=== PATIENT | male | born 1980 | race Caucasian/White ===

== ENCOUNTER 2016-09-23 02:43 | Emergency (ER) | payer OTHER ==
[~2016-09-23] VITALS: Ht 182.9 cm; Wt 72.0 kg
[2016-09-23 02:45] VITALS: BP 143/90; PULSE 117; RESP 16; TEMP 98.9; O2SAT 98
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
== END 2016-09-23 03:23 | disposition home or self-care (01) ==
LOC: NEPB 02:43
DX: S31.119A Laceration without foreign body of abdominal wall, unspecified quadrant without penetration into peritoneal cavity, initial encounter (principal); S00.81XA Abrasion of other part of head, initial encounter; S50.812A Abrasion of left forearm, initial encounter; S50.811A Abrasion of right forearm, initial encounter; F17.200 Nicotine dependence, unspecified, uncomplicated; Z86.19 Personal history of other infectious and parasitic diseases; Z86.79 Personal history of other diseases of the circulatory system; W17.89XA Other fall from one level to another, initial encounter; Y93.89 Activity, other specified
CPT/HCPCS: 12004

== ENCOUNTER 2016-10-16 16:55 | Emergency (ER) | payer SELFPAY ==
[2016-10-16 16:57] VITALS: BP 128/88; PULSE 105; RESP 17; TEMP 97.8; O2SAT 95
== END 2016-10-16 17:35 | disposition left against medical advice (07) ==
LOC: NED 16:55
DX: Z53.21 Procedure and treatment not carried out due to patient leaving prior to being seen by health care provider (principal)
CPT/HCPCS: 99281

== ENCOUNTER 2016-10-26 14:43 | Emergency (ER) | payer OTHER ==
[~2016-10-26] VITALS: Ht 182.9 cm; Wt 75.0 kg
[2016-10-26 14:45] VITALS: BP 133/79; PULSE 97; RESP 18; TEMP 98.2; O2SAT 97
[2016-10-26] MEDS ORDERED: BACT800T5 PO (16:24)
[2016-10-26] MEDS ORDERED: CEPH-460 PO (16:24)
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
[2016-10-26] MEDS ORDERED: LIDOCAINE 1%/EPINEPHrine 1:100,000 SOLN 20 ML VIAL INFIL ONE (16:30)
== END 2016-10-26 16:51 | disposition home or self-care (01) ==
LOC: NEPB 14:43
DX: L02.413 Cutaneous abscess of right upper limb (principal); B19.20 Unspecified viral hepatitis C without hepatic coma; F17.210 Nicotine dependence, cigarettes, uncomplicated; B96.1 Klebsiella pneumoniae [K. pneumoniae] as the cause of diseases classified elsewhere
CPT/HCPCS: 10060; 87070; 87077; 87186

== ENCOUNTER 2017-09-01 17:08 | Emergency (ER) | payer SELFPAY ==
[~2017-09-01 17:08] MED LIST: BACT800T5 PO; CEPH-460 PO
[2017-09-01 17:10] VITALS: BP 133/81; PULSE 100; RESP 20; TEMP 98.1; O2SAT 98
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
== END 2017-09-01 18:00 | disposition left against medical advice (07) ==
LOC: NETRI 17:08
DX: H92.01 Otalgia, right ear (principal); F17.200 Nicotine dependence, unspecified, uncomplicated
CPT/HCPCS: 99281

== ENCOUNTER 2017-09-23 02:49 | Inpatient (IN) | payer SELFPAY ==
[~2017-09-23] VITALS: Ht 182.9 cm; Wt 73.6 kg
[2017-09-23 02:51] VITALS: BP 134/86; PULSE 90; RESP 18; TEMP 98.4; O2SAT 100
[2017-09-23] MEDS ORDERED: VANCOMYCIN INJ 1,150 MG in SODIUM CHLOR 0.9% 250 ML INJ 250 ML IV ONE (03:45)
[2017-09-23] MEDS ORDERED: KETOROLAC TROMETHAMINE 30 MG/ML (IVP) VIAL IV PUSH ONE (03:45)
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
[2017-09-23 04:26] LABS: AUTOMATED NEUTROPHIL # 8.8 TH/MM3 (1.8-7.7); BASOPHIL # 0.1 TH/MM3 (0-0.2); BASOPHIL % 0.5 % (0.0-2.0); EOSINOPHIL # 0.2 TH/MM3 (0-0.4); EOSINOPHIL % 1.3 % (0.0-4.0); HEMATOCRIT 40.8 % (39.0-51.0); HEMOGLOBIN 13.2 GM/DL (13.0-17.0); LYMPH % 16.6 % (9.0-44.0); MEAN CELL VOLUME 86.7 FL (80.0-100.0); MEAN CORPUSCULAR HEMOGLOBIN 27.9 PG (27.0-34.0); MEAN CORPUSCULAR HGB CONC 32.2 % (32.0-36.0); MEAN PLATELET VOLUME 8.2 FL (7.0-11.0); MONOCYTE # 0.9 TH/MM3 (0-0.9); NEUT % 73.6 % (16.0-70.0); PLATELET COUNT 354 TH/MM3 (150-450); RED BLOOD COUNT 4.71 MIL/MM3 (4.50-5.90); RED CELL DISTRIBUTION WIDTH 14.1 % (11.6-17.2); WHITE BLOOD COUNT 11.9 TH/MM3 (4.0-11.0)
[2017-09-23 04:52] LABS: BICARBONATE 29.4 MEQ/L (21.0-32.0); CALCIUM 9.2 MG/DL (8.5-10.1); CREATININE 0.81 MG/DL (0.60-1.30)
[2017-09-23 04:56] LABS: PROTHROMBIN TIME - PATIENT 10.6 SEC (9.8-11.6)
--- NOTE | 2017-09-23 04:59 | RADRPT ---
EXAM DATE/TIME: 09/23/2017 04:07 [facility] COMPARISON: No previous studies available for comparison. INDICATIONS : Left hand pain and swelling. MEDICAL HISTORY : History of endocarditis, hepatitis C, septic pulmonary embolism, IV drug use. SURGICAL HISTORY : History of abdominal surgery, orthopedic hand surgery. ENCOUNTER: Initial ACUITY: 3 days PAIN SCORE: 8/10 LOCATION: Left hand. FINDINGS: There is soft tissue swelling of the second digit. There is some soft tissue swelling at the dorsal a spect of the hand and metacarpals. The bony structures appear intact. No fractures or bony destructio n are seen. No foreign body seen. CONCLUSION: Soft tissue swelling. Govind Chaudhry MD on September 23, 2017 at 4:56 Board Certified Radiologist. This report was verified electronically.
[2017-09-23] MEDS ORDERED: LIDOCAINE HCL 1% 50 ML VIAL INFIL ONE (06:00)
[2017-09-23 07:00] VITALS: BP 121/80; PULSE 89; RESP 16; TEMP 98; O2SAT 99
[2017-09-23] MEDS ORDERED: TYLE325T PO (07:00)
[2017-09-23] MEDS ORDERED: BACT800T5 PO (07:00)
[2017-09-23] MEDS ORDERED: SENNOSIDES 8.6 MG TAB PO PRN (08:15)
[2017-09-23] MEDS ORDERED: MAGNESIUM HYDROXIDE SUSP 30 ML CUP PO PRN (08:15)
[2017-09-23] MEDS ORDERED: Vancomycin Consult Pharmacy 1 EA OTHER SCH (08:15)
[2017-09-23] MEDS ORDERED: BISACODYL 10 MG SUPP RECTAL PRN (08:15)
[2017-09-23] MEDS ORDERED: LACTULOSE SYRUP 20 GM/30 ML CUP PO PRN (08:15)
[2017-09-23] MEDS ORDERED: ONDANSETRON HCL 4 MG/2 ML VIAL IVP PRN (08:15)
[2017-09-23] MEDS ORDERED: NALOXONE HCL 0.4 MG/ML AMP IV PUSH PRN (08:15)
[2017-09-23] MEDS: SODIUM CHLORIDE 0.9% FLUSH 10 ML FLUSH IV FLUSH SCH ×2 (08:41→20:37)
[2017-09-23] MEDS: SODIUM CHLOR 0.9% 1000 ML INJ 1,000 ML IV SCH ×2 (08:41→18:11)
[2017-09-23 11:00] VITALS: BP 124/78; PULSE 86; RESP 17; TEMP 97.9; O2SAT 98
[2017-09-23 12:51] VITALS: BP 123/81; PULSE 84; RESP 16; TEMP 98; O2SAT 99
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
[2017-09-23 13:35] VITALS: BP 118/81; TEMP 97.8
[2017-09-23] MEDS ORDERED: POVIDONE IODINE 5% (ANTISEPSIS KIT) 4 APPLICATIONS EACH NARE PRN (14:30)
[2017-09-23] MEDS ORDERED: LACTATED RINGER'S 1000 ML IV PRN (14:30)
[2017-09-23] MEDS ORDERED: SODIUM CHLORID 0.9% 500 ML IV PRN (14:30)
[2017-09-23] MEDS ORDERED: METOPROLOL TARTRATE 25 MG TAB PO PRN (14:30)
[2017-09-23] MEDS ORDERED: CHLORHEXIDINE GLUCONATE 2 % 1 PACK (2 CLOTHS) TOPICAL PRN (14:30)
[2017-09-23] MEDS: VANCOMYCIN INJ 1,500 MG in SODIUM CHLORID 0.9% 500 ML INJ 500 ML IV SCH (14:38)
[2017-09-23] MEDS ORDERED: HYDROmorphone HCL PF 2 MG/ML VIAL ONE (15:55)
[2017-09-23] MEDS ORDERED: LIDOCAINE HCL 2% PF SOLN 10 ML VIAL INFIL ONE (16:59)
[2017-09-23] MEDS ORDERED: BUPIVACAINE HCL PF 0.25% 30 ML VIAL INFIL ONE (17:00)
--- NOTE | 2017-09-23 17:25 | PD.OP ---
Operative Report Preoperative Diagnosis: (1) felon left index finger Postoperative Diagnosis: (1) septic arthritis distal interphalangeal joint left index finger (2) felon left index finger Procedure: incision and drainage pulp arthrotomy distal interphalangeal joint left index finger Anesthesia: general Surgeon: Hernandez Beverly Powder Mixer(s): farzaneh Operation and Findings: necrotic pulp purulence within flexor tendon sheath septic arthritis DIP joint infection of the nail bed left index finger Hernandez Beverly MD Sep 23, 2017 17:25
[2017-09-23] MEDS ORDERED: DO NOT ADM ANY ANTICOAGULANT DRUGS PRN (17:30)
--- NOTE | 2017-09-23 19:09 | MB ---
cc: JHONNY MAHMOOD DATE OF CONSULTATION 09/23/17 REASON FOR CONSULTATION Left index finger infection. HISTORY OF PRESENT ILLNESS The patient is a 37-year-old right-hand dominant male with history of IV drug abuse who was admitted to the hospital with complaints of pain, swelling involving the left index finger of several days duration. The patient gives drainage from the region. Denies any injury. Denies any biting of nail. The patient states he used a needle to try to drain pus a few days ago which made it worse. He denies any fever. Complains of chills. He also complains of surrounding redness and difficulty with range of motion of the finger. Denies any numbness. PAST MEDICAL HISTORY 1. Hepatitis C 2. Mitral valve endocarditis. SOCIAL HISTORY Significant for smoking. PHYSICAL EXAMINATION The patient is sleepy that he does respond to oral commands. Examination of left index finger reveals wound along the radial aspect and dorsal aspect of the finger with exposed necrotic tissue. The nail plate appears to be elevated off the nail bed. There is evidence of surrounding swelling and erythema which extends up to the middle of the mid phalanx. The pulp appears to be dark and the tip of his finger over the hyponychium appears pale with no capillary refill. He has tenderness over the region. No tenderness noted along the flexor tendon sheath over the proximal phalanx region. He does have tenderness along the flexor tendon sheath over the DIP joint region. Range of motion of the DIP joint is limited and painful. PIP joint __ degrees of flexion, extension is painful. He also has drainage from the region. He has an open wound along the radial aspect of the nail bed and extending up to the DIP joint. LABORATORY DATA His lab work was reviewed. He has a white count of 11.7 and shift of 79%. IMAGING STUDIES X-rays of the left index finger shows soft tissue swelling. No evidence of osteomyelitis. ASSESSMENT A 37-year-old male with left index finger pulp infection, possible distal interphalangeal joint infection. PLAN Take the patient emergently for surgery. The various options were discussed with the patient including incision and drainage and amputation. The patient is not willing for amputation. He wants the finger to be saved. We will plan for incision and drainage and possible arthrotomy of the distal interphalangeal joint left index finger. We will admit the patient for IV antibiotics as well. MD KEITH Amanda /5:29 PM /6:51 PM
[2017-09-23 20:42] VITALS: BP 133/86; PULSE 99; RESP 18; TEMP 97.8; O2SAT 96
[2017-09-23] MEDS ORDERED: VANCOMYCIN 1 GM/200 ML INJ 200 ML IV SCH (21:00)
[2017-09-24] MEDS: VANCOMYCIN INJ 1,500 MG in SODIUM CHLORID 0.9% 500 ML INJ 500 ML IV SCH ×2 (02:49→13:50)
[2017-09-24] MEDS: SODIUM CHLOR 0.9% 1000 ML INJ 1,000 ML IV SCH ×3 (04:11→21:30)
[2017-09-24 07:12] VITALS: BP 104/63; PULSE 55; RESP 18; TEMP 97.8; O2SAT 98
--- NOTE | 2017-09-24 09:16 | HHI.PR ---
Subjective Remarks In bed appears in nad. No n/v/d/c. Manuel having pain at this time. Denies fever ro chills. He agrees to treatment. Objective Vitals Vital Signs Date Time Temp Pulse Resp B/P (MAP) Pulse Ox O2 Delivery O2 Flow Rate FiO2 09/24/17 07:12 97.8 55 18 104/63 (77) 98 09/23/17 20:42 97.8 99 18 133/86 (102) 96 09/23/17 18:10 98.4 83 15 107/61 (76) 98 Nasal Cannula 3 09/23/17 18:00 81 15 113/58 (76) 98 Nasal Cannula 3 09/23/17 17:45 86 15 111/59 (76) 97 Nasal Cannula 3 09/23/17 17:29 98.2 95 15 99/55 (70) 95 Nasal Cannula 3 09/23/17 13:35 97.8 80 16 118/81 (93) 99 09/23/17 12:51 98.0 84 16 123/81 (95) 99 Room Air 09/23/17 11:00 97.9 86 17 124/78 (93) 98 Room Air I/O 09/23/17 09/23/17 09/23/17 09/24/17 09/24/17 09/24/17 07:00 15:00 23:00 07:00 15:00 23:00 Intake Total 261.5 ml 575 ml Output Total 10 ml Balance 261.5 ml 565 ml Intake IV Total 261.5 ml 75 ml Other 500 ml Output Urine Total 0 ml Estimated Blood Loss 10 ml # Voids 1 # Bowel Movements 0 Result Diagram: 09/23/17 0409 09/23/17 0409 Imaging Last Impressions Hand X-Ray 09/23/17 0000 Signed Impressions: Service Date/Time: September 04:07 - CONCLUSION: Soft tissue swelling. Govind Chaudhry MD Objective Remarks GENERAL: This is a well-nourished, well-developed patient, in no apparent distress. Appears somnolent, wakes up for exam. Oriented 3. CARDIOVASCULAR: Regular rate and rhythm without murmurs, gallops, or rubs. RESPIRATORY: Clear to auscultation. Breath sounds equal bilaterally. No wheezes , rales, or rhonchi. GASTROINTESTINAL: Abdomen soft, non-tender, nondistended. No hepato-splenomegaly , or palpable masses. No guarding. MUSCULOSKELETAL: Extremities without clubbing, cyanosis, or edema. No joint tenderness, effusion, or edema noted. No calf tenderness. Negative Homans sign bilaterally. Left ue second digit dressed with dressing intact. Peripheral perfusion intact. NEUROLOGICAL: Awake and alert. Cranial nerves II through XII intact. Motor and sensory grossly within normal limits. Five out of 5 muscle strength in all muscle groups. Normal speech. A/P Assessment and Plan Left second digit cellulitis. Necrotic pulp/ Purulence within flexor tendon sheath/ Septic arthritis DIP joint / Infection of the nail bed left index finger Bacteremia with Gram-positive cocci Consult infectious disease SP incision and drainage pulp and arthrotomy distal interphalangeal joint left index finger by Dr Beverly, hand surgeon X-ray hand with soft tissue swelling, no evidence of osteomyelitis. White blood cell count 11.9. Start on vancomycin. Blood cultures ordered by the ER Continue to monitor. Hand surgery consult appreciated On vanco IV continue , ID consulted History of narcotic abuse, IV drug use. Avoid narcotics if possible. Tobaccoism. Cessation counseling provided. Discussed Condition With Patient, nurse Opal Rust MD Sep 24, 2017 09:16
[2017-09-24] MEDS: SODIUM CHLORIDE 0.9% FLUSH 10 ML FLUSH IV FLUSH SCH ×2 (09:21→21:37)
[2017-09-24 11:28] VITALS: BP 91/52; PULSE 75; RESP 18; TEMP 97.6; O2SAT 98
[2017-09-24 15:24] VITALS: BP 116/74; PULSE 88; RESP 18; TEMP 97.9; O2SAT 100
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
[2017-09-24] MEDS ORDERED: DIATRIZOATE MEGLUM/DIATRIZOATE SOD 9 ML CUP PO ONE (16:45)
[2017-09-24] MEDS ORDERED: IOHEXOL 350 MG/ML 10 ML VIAL (for RAD DIAG) IVCONTRAST ONE (20:23)
[2017-09-24 20:50] VITALS: BP 105/57; PULSE 73; RESP 17; TEMP 98; O2SAT 97
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
[2017-09-25 00:39] VITALS: BP 123/78; PULSE 76; RESP 17; TEMP 97.9; O2SAT 97
[2017-09-25] MEDS ORDERED: PHARMACY ORDERED LAB ONE (01:45)
[2017-09-25] MEDS: VANCOMYCIN INJ 1,500 MG in SODIUM CHLORID 0.9% 500 ML INJ 500 ML IV SCH (02:00)
[2017-09-25 02:08] LABS: ALBUMIN 2.9 GM/DL (3.4-5.0); AST (GOT) 9 U/L (15-37); BICARBONATE 27.4 MEQ/L (21.0-32.0); BLOOD UREA NITROGEN 11 MG/DL (7-18); CALCIUM 8.8 MG/DL (8.5-10.1); CHLORIDE 106 MEQ/L (98-107); CREATININE 0.77 MG/DL (0.60-1.30); DIRECT BILIRUBIN ADULT 0.1 MG/DL (0.0-0.2); GLOMERULAR FILTRATION RATE 114 ML/MIN (>89); GLUCOSE,RANDOM 98 MG/DL (74-106); SODIUM (NA) 142 MEQ/L (136-145)
[2017-09-25 02:09] LABS: ALT (GPT) 14 U/L (12-78)
[2017-09-25 02:11] LABS: ALKALINE PHOSPHATASE 68 U/L (45-117); TOTAL BILIRUBIN ADULT 0.2 MG/DL (0.2-1.0); TOTAL PROTEIN 7.1 GM/DL (6.4-8.2); VANCOMYCIN TROUGH 12.9 MCG/ML (5.0-10.0)
[2017-09-25 03:49] VITALS: BP 105/52; PULSE 70; RESP 17; TEMP 98; O2SAT 97
[2017-09-25 07:47] VITALS: BP 98/62; PULSE 54; RESP 18; TEMP 98.4; O2SAT 100
--- NOTE | 2017-09-25 09:37 | HHI.PR ---
Subjective Remarks In bed says pain in his hand is fairly controlled by meds. No fever or chills overnight. No n/v/d/c. Objective Vitals Vital Signs Date Time Temp Pulse Resp B/P (MAP) Pulse Ox O2 Delivery O2 Flow Rate FiO2 09/25/17 07:47 98.4 54 18 98/62 (74) 100 09/25/17 03:49 98.0 70 17 105/52 (69) 97 09/25/17 00:39 97.9 76 17 123/78 (93) 97 09/24/17 20:50 98.0 73 17 105/57 (73) 97 09/24/17 15:24 97.9 88 18 116/74 (88) 100 09/24/17 11:28 97.6 75 18 91/52 (65) 98 Result Diagram: 09/23/17 0409 09/25/17 0140 Objective Remarks GENERAL: This is a well-nourished, well-developed patient, in no apparent distress. Appears somnolent, wakes up for exam. Oriented 3. CARDIOVASCULAR: Regular rate and rhythm without murmurs, gallops, or rubs. RESPIRATORY: Clear to auscultation. Breath sounds equal bilaterally. No wheezes , rales, or rhonchi. GASTROINTESTINAL: Abdomen soft, non-tender, nondistended. No hepato-splenomegaly , or palpable masses. No guarding. MUSCULOSKELETAL: Extremities without clubbing, cyanosis, or edema. No joint tenderness, effusion, or edema noted. No calf tenderness. Negative Homans sign bilaterally. Left ue second digit dressed with dressing intact. Peripheral perfusion intact. NEUROLOGICAL: Awake and alert. Cranial nerves II through XII intact. Motor and sensory grossly within normal limits. Five out of 5 muscle strength in all muscle groups. Normal speech. A/P Assessment and Plan Left second digit cellulitis. Necrotic pulp/ Purulence within flexor tendon sheath/ Septic arthritis DIP joint / Infection of the nail bed left index finger Bacteremia with Gram-positive cocci Consult infectious disease SP incision and drainage pulp and arthrotomy distal interphalangeal joint left index finger by Dr Beverly, hand surgeon X-ray hand with soft tissue swelling, no evidence of osteomyelitis. White blood cell count 11.9. Start on vancomycin. Blood cultures ordered by the ER Continue to monitor. Hand surgery consult appreciated On vanco IV continue , ID consulted and ff Discussed with Dr Beverly and Dr Paula ANTONY. Patient likely will need amputation however he declines at this time, but will think about History of narcotic abuse, IV drug use. Avoid narcotics if possible. Counselled. Tobaccoism. Cessation counseling provided. Discussed Condition With Patient, nurse Opal Rust MD Sep 25, 2017 09:37
[2017-09-25] MEDS: SODIUM CHLORIDE 0.9% FLUSH 10 ML FLUSH IV FLUSH SCH ×2 (10:25→20:51)
[2017-09-25] MEDS: SODIUM CHLOR 0.9% 1000 ML INJ 1,000 ML IV SCH ×2 (10:25→20:11)
[2017-09-25 12:24] VITALS: BP 115/69; PULSE 78; RESP 18; TEMP 98.1; O2SAT 100
[2017-09-25] MEDS: VANCOMYCIN INJ 1,250 MG in SODIUM CHLOR 0.9% 250 ML INJ 250 ML IV SCH ×2 (13:47→20:50)
--- NOTE | 2017-09-25 15:31 | ECHRPT ---
Indication: endocarditis CONCLUSIONS Normal left ventricular size. The left ventricular systolic function is mildly reduced with an estimated ejection fraction in the range of 55- 60 [id number] mitral valve regurgitation. No aortic valve regurgitation. No aortic valve stenosis. There is mild tricuspid valve regurgitation. The estimated pulmonary arterial pressure is 49.4 mmHg. No evidence of endocarditis seen. BP: / HR: Rhythm: MEASUREMENTS (Male / Female) Normal Values Technical Quality:Good 2D ECHO LV Diastolic Diameter PLAX 5.3 cm 4.2 - 5.9 / 3.9 - 5.3 cm LV Systolic Diameter PLAX 3.4 cm IVS Diastolic Thickness 1.1 cm 0.6 - 1.0 / 0.6 - 0.9 cm LVPW Diastolic Thickness 1.1 cm 0.6 - 1.0 / 0.6 - 0.9 cm LV Relative Wall Thickness 0.4 RV Internal Dim ED PLAX 2.9 cm M-MODE Aortic Root Diameter MM 4.1 cm LA Systolic Diameter MM 3.5 cm LA Ao Ratio MM 0.9 AV Cusp Separation MM 2.6 cm DOPPLER LV E' Lateral Velocity 13.5 cm/s LV E' Septal Velocity 13.2 cm/s TR Peak Velocity 314.0 cm/s TR Peak Gradient 39.4 mmHg Right Atrial Pressure 10.0 mmHg Pulmonary Artery Systolic Pressu 49.4 mmHg Right Ventricular Systolic Press 49.4 mmHg FINDINGS LEFT VENTRICLE Normal left ventricular size. The left ventricular systolic function is mildly reduced with an estimated ejection fraction in the range of 55- 60 RIGHT VENTRICLE Normal right ventricular size and systolic function. LEFT ATRIUM The left atrial size is normal. RIGHT ATRIUM The right atrial size is normal. ATRIAL SEPTUM Normal atrial septal thickness without atrial level shunting by limited color doppler interrogation. AORTA The aortic root and proximal ascending aorta are normal in size on limited imaging. MITRAL VALVE Structurally normal mitral valve. [id number] mitral valve regurgitation. AORTIC VALVE Trileaflet aortic valve. No aortic valve regurgitation. No aortic valve stenosis. TRICUSPID VALVE Structurally normal tricuspid valve. There is mild tricuspid valve regurgitation. The estimated pulmonary arterial pressure is 49.4 mmHg. PULMONARY VALVE No pulmonary valve regurgitation or stenosis. VESSELS The inferior vena cava is normal in size. PERICARDIUM No pericardial effusion. Pernell Lee MD (Electronically Signed) Final Date:25 September 2017 15:30
[2017-09-25 16:00] VITALS: BP 133/91; PULSE 80; RESP 17; TEMP 96; O2SAT 98
--- NOTE | 2017-09-25 17:06 | MP ---
cc: JHONNY MAHMOOD MD DATE OF SURGERY: 09/23/2017. PREOPERATIVE DIAGNOSIS: Felon, left index finger. POSTOPERATIVE DIAGNOSIS 1. Felon left index finger. 2. Septic arthritis, left index finger distal interphalangeal joint. OPERATIVE PROCEDURE PERFORMED: 1. Incision and drainage of left index finger pulp. 2. Arthrotomy distal interphalangeal joint, left index finger. SURGEON: Jhonny Mahmood M.D. ANESTHESIA: General. ESTIMATED BLOOD LOSS: Minimal. TOURNIQUET TIME 26 minutes at 250 mmHg SPECIMEN: Specimen was sent for culture and sensitivity. CONDITION: To the post-anesthesia care unit stable. INDICATIONS FOR THE PROCEDURE: The patient is a 37-year-old male who presented with complaints of pain and swelling involving the left index finger of several days duration. The patient tried to drain the pus by himself and he also had incision and drainage by the emergency department of the left index finger. On examination, the patient had necrotic pulp with abscess along the radial aspect of the index finger with a flexion deformity of the distal interphalangeal joint and elevation of the nail plate of the nail bed. X-rays were negative for bony lesion. He had a white count of 11.9 with shift of 73%. Various options were given to the patient including incision and drainage and amputation. The patient was not willing for amputation of the finger and he was consented for incision and drainage left index finger with possible arthrotomy of the distal interphalangeal joint. The patient was explained risk and benefits of the procedure. DESCRIPTION OF THE PROCEDURE IN DETAIL: The patient was brought to the operating room and under general anesthesia, the left upper extremity was thoroughly prepped and draped. After limb elevation, the tourniquet was inflated to 250 mmHg. The previously placed incision along the radial aspect of the pulp was opened up and the incision was then extended distally and proximally up to the PIP joint. On further exploration, there was evidence of necrotic tissue within the pulp with purulent material which was drained. Cultures were obtained for culture and sensitivity. There was elevation of the nail plate and bed of the distal phalanx with exposed distal phalanx on the radial aspect. The incision was then extended dorsally over the PIP joint and skin flaps were elevated. There was evidence of infection involving the distal interphalangeal joint with exposed joint on the radial aspect. On the volar aspect, further dissection was carried out exposing the flexor tendon sheath which was surrounded by purulent material. The sheath was opened up and thorough wash was given using normal saline mixed with irrigant and hydrogen peroxide. About a liter of solution was used. The tourniquet was deflated. Total tourniquet time was 26 minutes. He had good distal circulation and up to mid pulp and the terminal tip of the finger including the hyponychium and did not have any vascularity. The skin flaps were loosely approximated on the dorsal aspect .Packing of the wounds was carried out over the flexor tendon sheath and the proximal interphalangeal joint and the pulp region. About 20 cc of local anesthesia was given as a digital block proximally. A bulky hand dressing was applied, which was held in place by Daryn. The patient was recovered and sent to the recovery room in stable condition. The plan will be to get infectious disease involved and further discussion with the patient regarding amputation through the mid phalanx either tomorrow or the day after tomorrow. We will continue with IV antibiotics. Jhonny Mahmood MD SE/PEREZ /5:24 PM /4:53 PM
[2017-09-25 20:00] VITALS: BP 119/81; PULSE 75; RESP 17; TEMP 97.6; O2SAT 99
[2017-09-26] VITALS: BP 118/77; PULSE 90; RESP 17; TEMP 97.8; O2SAT 99
[2017-09-26] MEDS: SODIUM CHLOR 0.9% 1000 ML INJ 1,000 ML IV SCH ×2 (04:10→16:11)
[2017-09-26] MEDS: VANCOMYCIN INJ 1,250 MG in SODIUM CHLOR 0.9% 250 ML INJ 250 ML IV SCH ×3 (04:10→20:32)
[2017-09-26 08:00] VITALS: BP 109/64; PULSE 73; RESP 16; TEMP 96.7; O2SAT 98
[2017-09-26] MEDS: SODIUM CHLORIDE 0.9% FLUSH 10 ML FLUSH IV FLUSH SCH ×2 (09:00→20:44)
--- NOTE | 2017-09-26 09:40 | HHI.PR ---
Subjective Remarks Follow-up for left hand second digit infection, IV drug use, MRSA bacteremia. Patient is resting well in bed. Denies any chest pain, shortness of breath, fever or chills. No acute concerns. Objective Vitals Vital Signs Date Time Temp Pulse Resp B/P (MAP) Pulse Ox O2 Delivery O2 Flow Rate FiO2 09/26/17 08:00 96.7 73 16 109/64 (79) 98 09/26/17 00:00 97.8 90 17 118/77 (91) 99 09/25/17 20:00 97.6 75 17 119/81 (94) 99 09/25/17 16:00 96.0 80 17 133/91 (105) 98 09/25/17 12:24 98.1 78 18 115/69 (84) 100 I/O 09/25/17 09/25/17 09/25/17 09/26/17 09/26/17 09/26/17 07:00 15:00 23:00 07:00 15:00 23:00 Intake Total 480 ml 1232.5 ml 1702.5 ml Output Total 2000 ml Balance -1520 ml 1232.5 ml 1702.5 ml Intake Oral 480 ml 720 ml 1440 ml IV Total 512.5 ml 262.5 ml Output Urine Total 2000 ml # Voids 2 4 # Bowel Movements 0 Result Diagram: 09/23/17 0409 09/25/17 0140 Imaging Last Impressions Chest CT 09/24/17 0000 Signed Impressions: Service Date/Time: Sunday, September 24, 2017 20:18 - CONCLUSION: 1. Prior granulomatous disease. 2. 4 mm noncalcified nodule within the left lung base likely related to a noncalcified granuloma. Current guidelines state further followup is not needed. 3. Adenopathy involving the left axilla. Moses De Los Santos Jr., MD Abdomen/Pelvis CT 09/24/17 0000 Signed Impressions: Service Date/Time: Sunday, September 24, 2017 20:18 - CONCLUSION: 1. Splenomegaly. 2. No acute abnormality. Moses De Los Santos Jr., MD Hand X-Ray 09/23/17 0000 Signed Impressions: Service Date/Time: September 04:07 - CONCLUSION: Soft tissue swelling. Govind Chaudhry MD Objective Remarks GENERAL: Alert, oriented 3, NAD. SKIN: Warm and dry. HEAD: Normocephalic. EYES: No scleral icterus. No injection or drainage. NECK: Supple, trachea midline. No JVD or lymphadenopathy. CARDIOVASCULAR: Regular rate and rhythm without murmurs, gallops, or rubs. RESPIRATORY: Breath sounds equal bilaterally. No accessory muscle use. GASTROINTESTINAL: Abdomen soft, non-tender, nondistended. MUSCULOSKELETAL: No cyanosis, or edema. Left hand wrapped in dressing. Able to move fingers. BACK: Nontender without obvious deformity. No CVA tenderness. Procedures 09/23/2017 1. Incision and drainage of left index finger pulp. 2. Arthrotomy distal interphalangeal joint, left index finger. 09/25/2017 Normal left ventricular size. The left ventricular systolic function is mildly reduced with an estimated ejection fraction in the range of 55- 60 [id number] mitral valve regurgitation. No aortic valve regurgitation. No aortic valve stenosis. There is mild tricuspid valve regurgitation. The estimated pulmonary arterial pressure is 49.4 mmHg. No evidence of endocarditis seen. A/P Problem List: (1) MRSA bacteremia ICD Code: R78.81 - Bacteremia (2) septic arthritis distal interphalangeal joint left index finger (3) Abscess of left index finger ICD Code: L02.512 - Cutaneous abscess of left hand Status: Acute (4) history of iv drug abuse Status: Chronic Assessment and Plan Mr. Quintero is a 37-year-old male with a history of IV drug use who presented to the emergency department due to left index finger swelling and pain. Hand surgery was consulted. Patient underwent I&D on 09/23/2017. - MRSA bacteremia - Left index finger septic arthritis - Status post I&D by hand surgery. - Infectious disease is following. Continue vancomycin IV with target trough 15-20. - Echocardiogram negative for any vegetation. CT abdomen pelvis, CT chest unremarkable for any acute findings. 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 - History of IV drug use Full code. SCDs. Discussed with hand surgery. Ines Montilla DO Sep 26, 2017 9:40 am
[2017-09-26] MEDS ORDERED: PHARMACY ORDERED LAB ONE (11:45)
[2017-09-26] MEDS ORDERED: PROPOFOL 200 MG/20 ML AMP IV ONE (12:00)
[2017-09-26] MEDS ORDERED: ONDANSETRON HCL 4 MG/2 ML VIAL IV ONE (12:00)
[2017-09-26] MEDS ORDERED: DEXAMETHASONE SOD PHOS 4 MG/ML VIAL IV ONE (12:00)
[2017-09-26] MEDS ORDERED: LIDOCAINE HCL 1% PF 5 ML SYRINGE OTHER ONE (12:00)
[2017-09-26 12:58] LABS: AUTOMATED NEUTROPHIL # 4.5 TH/MM3 (1.8-7.7); BASOPHIL % 0.5 % (0.0-2.0); EOSINOPHIL # 0.1 TH/MM3 (0-0.4); HEMOGLOBIN 11.6 GM/DL (13.0-17.0); LYMPH % 20.4 % (9.0-44.0); LYMPHOCYTE # 1.3 TH/MM3 (1.0-4.8); MEAN CELL VOLUME 86.5 FL (80.0-100.0); MEAN CORPUSCULAR HEMOGLOBIN 28.7 PG (27.0-34.0); MEAN CORPUSCULAR HGB CONC 33.2 % (32.0-36.0); MEAN PLATELET VOLUME 8.1 FL (7.0-11.0); MONO % 9.1 % (0.0-8.0); MONOCYTE # 0.6 TH/MM3 (0-0.9); PLATELET COUNT 333 TH/MM3 (150-450); RED BLOOD COUNT 4.05 MIL/MM3 (4.50-5.90); WHITE BLOOD COUNT 6.5 TH/MM3 (4.0-11.0)
[2017-09-26 13:18] LABS: BICARBONATE 29.1 MEQ/L (21.0-32.0); CALCIUM 8.5 MG/DL (8.5-10.1); CREATININE 0.69 MG/DL (0.60-1.30)
[2017-09-26] MEDS ORDERED: LACTATED RINGER'S 1000 ML IV PRN ×2 (15:00→19:15)
[2017-09-26] MEDS ORDERED: INSULIN HUMAN REGULAR 1,000 UNITS/10 ML VIAL SQ PRN ×2 (15:00→19:15)
[2017-09-26] MEDS ORDERED: POVIDONE IODINE 5% (ANTISEPSIS KIT) 4 APPLICATIONS EACH NARE PRN ×2 (15:00→19:15)
[2017-09-26] MEDS ORDERED: CHLORHEXIDINE GLUCONATE 2 % 1 PACK (2 CLOTHS) TOPICAL PRN ×2 (15:00→19:15)
[2017-09-26] MEDS ORDERED: METOPROLOL TARTRATE 25 MG TAB PO PRN ×2 (15:00→19:15)
[2017-09-26] MEDS ORDERED: SODIUM CHLORID 0.9% 500 ML IV PRN ×2 (15:00→19:15)
[2017-09-26 16:00] VITALS: BP 124/74; PULSE 87; RESP 17; TEMP 97.3; O2SAT 98
[2017-09-26] MEDS ORDERED: METOCLOPRAMIDE HCL 10 MG/2 ML VIAL ONE (17:37)
[2017-09-26] MEDS ORDERED: ACETAMINOPHEN 1000 MG/100 ML 100 ML IV ONE ×2 (17:41→20:00)
[2017-09-26] MEDS ORDERED: NEOMYCIN/POLYMYXIN 1 ML G.U. IRRIGANT ONE (18:51)
[2017-09-26] MEDS ORDERED: BACITRACIN TOP OINT 15 GM TUBE ONE (19:46)
--- NOTE | 2017-09-26 19:59 | PD.OP ---
Operative Report Preoperative Diagnosis: (1) septic arthritis distal interphalangeal joint left index finger (2) felon left index finger Postoperative Diagnosis: (1) septic arthritis distal interphalangeal joint left index finger (2) felon left index finger Procedure: wash and debridement left index pulp and DIP joint Anesthesia: general Surgeon: Hernandez Beverly New Car Inspector(s): farzaneh Operation and Findings: necrotic pulp tissue on the radial aspect purulence within the pulp tissue open joint on the radial aspect DIP Joint Hernandez Beverly MD Sep 26, 2017 19:59
[2017-09-26] MEDS ORDERED: METOCLOPRAMIDE HCL 10 MG/2 ML VIAL IV ONE (20:00)
[2017-09-26] MEDS ORDERED: FAMOTIDINE 20 MG/2 ML VIAL IV ONE (20:00)
[2017-09-26] MEDS ORDERED: MIDAZOLAM HCL 2 MG/2 ML VIAL ONE (20:08)
[2017-09-26] MEDS ORDERED: *morphine SULFATE 8 MG/ML PERIprocedure ONLY ONE (20:13)
[2017-09-26] MEDS ORDERED: *diphenhydrAMINE HCL 50 MG/ML VIAL PERIprocedural Use ONLY ONE (20:16)
[2017-09-26] MEDS ORDERED: *MEPERIDINE 25 MG INJ VIAL PERIprocedural Use ONLY ONE (20:24)
[2017-09-26] MEDS ORDERED: *morphine SULFATE 4 MG/ML PERIprocedure ONLY ONE (20:25)
[2017-09-26 21:27] VITALS: BP 106/69; PULSE 58; RESP 18; TEMP 96.2; O2SAT 96
[2017-09-27] MEDS: SODIUM CHLOR 0.9% 1000 ML INJ 1,000 ML IV SCH ×3 (04:24→22:11)
[2017-09-27] MEDS: VANCOMYCIN INJ 1,250 MG in SODIUM CHLOR 0.9% 250 ML INJ 250 ML IV SCH ×2 (04:28→20:00)
[2017-09-27 08:00] VITALS: BP 90/52; PULSE 54; RESP 16; TEMP 97.9; O2SAT 99
[2017-09-27] MEDS: SODIUM CHLORIDE 0.9% FLUSH 10 ML FLUSH IV FLUSH SCH ×2 (09:00→21:00)
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
[2017-09-27] MEDS ORDERED: PHARMACY ORDERED LAB ONE (11:45)
[2017-09-27 12:00] VITALS: BP 90/55; PULSE 66; RESP 16; TEMP 97.3; O2SAT 98
[2017-09-27 14:17] LABS: HEPATITIS A AB IGM NEGATIVE (NEGATIVE); HEPATITIS B CORE AB IGM NEGATIVE (NEGATIVE); HEPATITIS B SURFACE ANTIGEN NEGATIVE (NEGATIVE); HEPATITIS C AB IgG REACTIVE (NEGATIVE)
--- NOTE | 2017-09-27 14:47 | HHI.PR ---
Subjective Remarks Follow-up for left hand second digit infection, IV drug use, MRSA bacteremia. Patient is doing well. No fever, chills. He refused blood draws. We discussed with patient in two separate visits today regarding the importance of checking vancomycin trough level, repeat blood cultures. Objective Vitals Vital Signs Date Time Temp Pulse Resp B/P (MAP) Pulse Ox O2 Delivery O2 Flow Rate FiO2 09/27/17 12:00 97.3 66 16 90/55 (67) 98 09/27/17 08:00 97.9 54 16 90/52 (65) 99 09/26/17 21:27 96.2 58 18 106/69 (81) 96 09/26/17 20:45 97.9 52 13 107/70 (82) 97 Room Air 09/26/17 20:30 54 14 110/73 (85) 98 Room Air 09/26/17 20:15 65 20 103/66 (78) 98 Room Air 09/26/17 20:03 98.0 62 14 104/56 (72) 97 Nasal Cannula 3 09/26/17 17:30 98.0 62 14 112/66 (81) 96 09/26/17 16:00 97.3 87 17 124/74 (91) 98 I/O 09/26/17 09/26/17 09/26/17 09/27/17 09/27/17 09/27/17 07:00 15:00 23:00 07:00 15:00 23:00 Intake Total 1702.5 ml 2105.0 ml 680 ml Output Total 250 ml Balance 1702.5 ml 1855.0 ml 680 ml Intake Oral 1440 ml 480 ml 680 ml IV Total 262.5 ml 1425.0 ml Other 200 ml Output Urine Total 250 ml Estimated Blood Loss 0 ml # Voids 4 5 3 # Bowel Movements 1 Result Diagram: 09/26/17 1230 09/26/17 1230 Imaging Last Impressions Chest CT 09/24/17 0000 Signed Impressions: Service Date/Time: Sunday, September 24, 2017 20:18 - CONCLUSION: 1. Prior granulomatous disease. 2. 4 mm noncalcified nodule within the left lung base likely related to a noncalcified granuloma. Current guidelines state further followup is not needed. 3. Adenopathy involving the left axilla. Moses De Los Santos Jr., MD Abdomen/Pelvis CT 09/24/17 0000 Signed Impressions: Service Date/Time: Sunday, September 24, 2017 20:18 - CONCLUSION: 1. Splenomegaly. 2. No acute abnormality. Moses De Los Santos Jr., MD Hand X-Ray 09/23/17 0000 Signed Impressions: Service Date/Time: September 04:07 - CONCLUSION: Soft tissue swelling. Govind Chaudhry MD Objective Remarks GENERAL: Alert, oriented 3, NAD. SKIN: Warm and dry. HEAD: Normocephalic. EYES: No scleral icterus. No injection or drainage. NECK: Supple, trachea midline. No JVD or lymphadenopathy. CARDIOVASCULAR: Regular rate and rhythm without murmurs, gallops, or rubs. RESPIRATORY: Breath sounds equal bilaterally. No accessory muscle use. GASTROINTESTINAL: Abdomen soft, non-tender, nondistended. MUSCULOSKELETAL: No cyanosis, or edema. Left hand wrapped in dressing. Able to move fingers. BACK: Nontender without obvious deformity. No CVA tenderness. Procedures 09/23/2017 1. Incision and drainage of left index finger pulp. 2. Arthrotomy distal interphalangeal joint, left index finger. 09/25/2017 Normal left ventricular size. The left ventricular systolic function is mildly reduced with an estimated ejection fraction in the range of 55- 60 [id number] mitral valve regurgitation. No aortic valve regurgitation. No aortic valve stenosis. There is mild tricuspid valve regurgitation. The estimated pulmonary arterial pressure is 49.4 mmHg. No evidence of endocarditis seen. A/P Problem List: (1) MRSA bacteremia ICD Code: R78.81 - Bacteremia (2) septic arthritis distal interphalangeal joint left index finger (3) Abscess of left index finger ICD Code: L02.512 - Cutaneous abscess of left hand Status: Acute (4) history of iv drug abuse Status: Chronic Assessment and Plan Mr. Quintero is a 37-year-old male with a history of IV drug use who presented to the emergency department due to left index finger swelling and pain. Hand surgery was consulted. Patient underwent I&D on 09/23/2017. - MRSA bacteremia - Left index finger septic arthritis - Status post I&D by hand surgery. - Infectious disease is following. Continue vancomycin IV with target trough 15-20. - Echocardiogram negative for any vegetation. CT abdomen pelvis, CT chest unremarkable for any acute findings. - Emphasized to the patient regarding importance of blood draws. - Patient verbalized understanding. - History of IV drug use - Has been counselled regarding risks of life threatening infections. Full code. SCDs. Discussed with ARPAN. Ines Montilla DO Sep 27, 2017 2:47 pm
--- NOTE | 2017-09-27 15:08 | HHI.PR ---
Subjective Remarks no new complaints denies fever Objective Vital Signs Date Time Temp Pulse Resp B/P (MAP) Pulse Ox O2 Delivery O2 Flow Rate FiO2 09/27/17 12:00 97.3 66 16 90/55 (67) 98 09/27/17 08:00 97.9 54 16 90/52 (65) 99 09/26/17 21:27 96.2 58 18 106/69 (81) 96 09/26/17 20:45 97.9 52 13 107/70 (82) 97 Room Air 09/26/17 20:30 54 14 110/73 (85) 98 Room Air 09/26/17 20:15 65 20 103/66 (78) 98 Room Air 09/26/17 20:03 98.0 62 14 104/56 (72) 97 Nasal Cannula 3 09/26/17 17:30 98.0 62 14 112/66 (81) 96 09/26/17 16:00 97.3 87 17 124/74 (91) 98 I/O 09/26/17 09/26/17 09/26/17 09/27/17 09/27/17 09/27/17 07:00 15:00 23:00 07:00 15:00 23:00 Intake Total 1702.5 ml 2105.0 ml 680 ml Output Total 250 ml Balance 1702.5 ml 1855.0 ml 680 ml Intake Oral 1440 ml 480 ml 680 ml IV Total 262.5 ml 1425.0 ml Other 200 ml Output Urine Total 250 ml Estimated Blood Loss 0 ml # Voids 4 5 3 # Bowel Movements 1 left index finger: dressing in place necrosis of the radial aspect of the pulp and DIP joint region minimal drainage cultures: MRSA Result Diagram: 09/26/17 1230 09/26/17 1230 Assessment and Plan Assessment and Plan 37 year old male s/p multiple debridement right index finger Plan: patient has necrotic tissue on the radial aspect with infection of the DIP joint right index finger he would benefit from amputation of the necrotic part patient is undecided about amputation, he would like to discuss with his mother regarding the same and might consider surgery on wednesday will plan accordingly continue with antibiotics Hernandez Beverly MD Sep 27, 2017 15:08
[2017-09-27 17:28] VITALS: O2SAT 98
[2017-09-27 20:00] VITALS: BP 125/81; PULSE 94; RESP 20; TEMP 98.2; O2SAT 96
[2017-09-28] VITALS: BP 120/79; PULSE 77; RESP 18; TEMP 97.5; O2SAT 98
[2017-09-28] MEDS: VANCOMYCIN INJ 1,250 MG in SODIUM CHLOR 0.9% 250 ML INJ 250 ML IV SCH ×3 (04:00→21:30)
[2017-09-28 08:00] VITALS: BP 112/63; PULSE 80; RESP 19; TEMP 97.4; O2SAT 98
[2017-09-28] MEDS: SODIUM CHLOR 0.9% 1000 ML INJ 1,000 ML IV SCH ×2 (08:11→16:57)
--- NOTE | 2017-09-28 08:31 | MP ---
cc: JHONNY MAHMOOD MD DATE OF SURGERY 09/26/2017 PREOPERATIVE DIAGNOSIS 1. Felon, left index finger. 2. Septic arthritis, distal interphalangeal joint left index finger. POSTOPERATIVE DIAGNOSIS 1. Felon, left index finger. 2. Septic arthritis, distal interphalangeal joint left index finger. PROCEDURE Wash and debridement, left index finger. SURGEON Dr. Mahmood. ANESTHESIA General. ESTIMATED BLOOD LOSS Minimal. TOURNIQUET TIME 10 minutes at 250 mmHg. SPECIMEN Specimen was discarded. CONDITION The patient was awakened and sent to the recovery room in stable condition. INDICATION FOR PROCEDURE The patient is a 37-year-old male who presented with complaints of infection of the left index finger of a week duration. The patient was taken two days ago for a left index finger infection. He was found to have a felon of the left thumb pulp and septic arthritis involving the distal interphalangeal joint. Excisional debridement and incision and drainage was carried out. He was brought in today for worsening symptoms. 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 Hence he was consented for wash and debridement of the left index finger. The patient was explained the risks and benefits of the procedure. DETAILS OF PROCEDURE The patient was brought to the operating room. Under general anesthesia the left upper extremity was thoroughly prepped and draped. After limb elevation the tourniquet was inflated to 250 mmHg. Intraoperative findings included necrotic pulp tissue along the radial aspect. The distal interphalangeal joint was exposed on the radial aspect. Evidence of purulence was noted within the hyponychium region of the pulp. There was also evidence of necrotic tissue extending onto the middle phalanx region, both on the volar and the dorsal aspect. Excisional debridement was carried out. A pocket of purulence within the hyponychium was drained. Necrotic tissue was debrided using sharp dissection. Thorough wash was given using normal saline mixed with hydrogen peroxide. This was then followed by normal saline mixed with irrigant. The DIP joint cartilage appears to be intact. The tourniquet was deflated. Total tourniquet time was 10 minutes. He had good distal circulation along the ulnar aspect of the pulp, but the radial aspect appears to be necrotic. Xeroform and bacitracin dressing was applied. Packing of the wounds were carried out. A finger dressing was applied which was held in place by Jrlix. The patient was awakened and sent to the recovery room in stable condition. Will have a discussion with the patient regarding amputation through the middle phalanx versus disarticulation through the DIP joint and will plan accordingly. Will continue the IV antibiotics. Jhonny Mahmood MD SE/BECKY /8:00 PM /8:14 AM
[2017-09-28] MEDS: SODIUM CHLORIDE 0.9% FLUSH 10 ML FLUSH IV FLUSH SCH ×2 (09:00→21:30)
[2017-09-28] MEDS ORDERED: PHARMACY ORDERED LAB ONE (11:45)
[2017-09-28 12:00] VITALS: BP 108/65; PULSE 85; RESP 20; TEMP 99.9; O2SAT 97
--- NOTE | 2017-09-28 12:48 | HHI.PR ---
Subjective Remarks Follow-up for left hand second digit infection, IV drug use, MRSA bacteremia. Sitting in his chair, more interactive and alert today. No fever, chills. He complains of a swelling on his right lower chest wall. Objective Vitals Vital Signs Date Time Temp Pulse Resp B/P (MAP) Pulse Ox O2 Delivery O2 Flow Rate FiO2 09/28/17 08:00 97.4 80 19 112/63 (79) 98 09/28/17 00:00 97.5 77 18 120/79 (93) 98 09/27/17 20:00 98.2 94 20 125/81 (96) 96 09/27/17 17:28 98 I/O 09/27/17 09/27/17 09/27/17 09/28/17 09/28/17 09/28/17 07:00 15:00 23:00 07:00 15:00 23:00 Intake Total 680 ml 0 ml 120 ml Balance 680 ml 0 ml 120 ml Intake Oral 680 ml 120 ml IV Total 0 ml # Voids 3 Result Diagram: 09/26/17 1230 09/26/17 1230 Imaging Last Impressions Ribs X-Ray 09/28/17 0000 Signed Impressions: Service Date/Time: Thursday, September 28, 2017 13:56 - CONCLUSION: 1. No evidence for displaced rib fractures or bony erosion. 2. Redemonstration of small calcified granuloma in the right lower lobe. Uli Donato MD Chest CT 09/24/17 0000 Signed Impressions: Service Date/Time: Sunday, September 24, 2017 20:18 - CONCLUSION: 1. Prior granulomatous disease. 2. 4 mm noncalcified nodule within the left lung base likely related to a noncalcified granuloma. Current guidelines state further followup is not needed. 3. Adenopathy involving the left axilla. Moses De Los Santos Jr., MD Abdomen/Pelvis CT 09/24/17 0000 Signed Impressions: Service Date/Time: Sunday, September 24, 2017 20:18 - CONCLUSION: 1. Splenomegaly. 2. No acute abnormality. Moses De Los Santos Jr., MD Hand X-Ray 09/23/17 0000 Signed Impressions: Service Date/Time: September 04:07 - CONCLUSION: Soft tissue swelling. Govind Chaudhry MD Objective Remarks GENERAL: Alert, oriented 3, NAD. SKIN: Warm and dry. HEAD: Normocephalic. EYES: No scleral icterus. No injection or drainage. NECK: Supple, trachea midline. No JVD or lymphadenopathy. CARDIOVASCULAR: Regular rate and rhythm without murmurs, gallops, or rubs. RESPIRATORY: Breath sounds equal bilaterally. No accessory muscle use. GASTROINTESTINAL: Abdomen soft, non-tender, nondistended. MUSCULOSKELETAL: No cyanosis, or edema. Left hand wrapped in dressing. Able to move fingers. BACK: Nontender without obvious deformity. No CVA tenderness. Procedures 09/23/2017 1. Incision and drainage of left index finger pulp. 2. Arthrotomy distal interphalangeal joint, left index finger. 09/25/2017 Normal left ventricular size. The left ventricular systolic function is mildly reduced with an estimated ejection fraction in the range of 55- 60 Wgsfx-by-[id number] mitral valve regurgitation. No aortic valve regurgitation. No aortic valve stenosis. There is mild tricuspid valve regurgitation. The estimated pulmonary arterial pressure is 49.4 mmHg. No evidence of endocarditis seen. A/P Problem List: (1) MRSA bacteremia ICD Code: R78.81 - Bacteremia (2) septic arthritis distal interphalangeal joint left index finger (3) Abscess of left index finger ICD Code: L02.512 - Cutaneous abscess of left hand Status: Acute (4) history of iv drug abuse Status: Chronic Assessment and Plan Mr. Quintero is a 37-year-old male with a history of IV drug use who presented to the emergency department due to left index finger swelling and pain. Hand surgery was consulted. Patient underwent I&D on 09/23/2017. - MRSA bacteremia - Left index finger septic arthritis - Status post I&D by hand surgery. - Infectious disease is following. Continue vancomycin IV with target trough 15-20. - Echocardiogram negative for any vegetation. CT abdomen pelvis, CT chest unremarkable for any acute findings. - Probable amputation of the gangrenous part of the finger on 09/30/2017. - Blood cultures from 09/27/2017 are negative so far. - Right chest wall protrusion - this maybe due to thin body habitus and ribs. CXR with rib view did not reveal any acute findings. - History of IV drug use - Has been counselled regarding risks of life threatening infections. Full code. SCDs. Ines Montilla DO Sep 28, 2017 12:47
[2017-09-28 15:52] VITALS: O2SAT 97
[2017-09-28 16:00] VITALS: BP 138/85; PULSE 79; RESP 20; TEMP 97.8; O2SAT 99
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
--- NOTE | 2017-09-28 17:50 | HHI.PR ---
Subjective Remarks no new complaints denies fever Objective Vital Signs Date Time Temp Pulse Resp B/P (MAP) Pulse Ox O2 Delivery O2 Flow Rate FiO2 09/28/17 16:00 97.8 79 20 138/85 (102) 99 09/28/17 15:52 97 21 09/28/17 12:00 99.9 85 20 108/65 (79) 97 09/28/17 08:00 97.4 80 19 112/63 (79) 98 09/28/17 00:00 97.5 77 18 120/79 (93) 98 09/27/17 20:00 98.2 94 20 125/81 (96) 96 I/O 09/27/17 09/27/17 09/27/17 09/28/17 09/28/17 09/28/17 07:00 15:00 23:00 07:00 15:00 23:00 Intake Total 680 ml 0 ml 240 ml Balance 680 ml 0 ml 240 ml Intake Oral 680 ml 240 ml IV Total 0 ml # Voids 3 left index finger: dressing in place necrotic tissue on the radial aspect extending to just proximal to DIP joint minimal drainage cultures: MRSA Result Diagram: 09/26/17 1230 09/26/17 1230 Assessment and Plan Assessment and Plan 37 year old male s/p multiple debridement right index finger Plan: patient has necrotic tissue on the radial aspect with infection of the DIP joint right index finger he would benefit from amputation of the necrotic part, either disarticulation through DIP joint vs amputation through middle phalanx wants to consider surgery on thrusday 09/30/17 will plan accordingly continue with antibiotics Hernandez Beverly MD Sep 28, 2017 17:49
[2017-09-28 20:00] VITALS: BP 129/87; PULSE 83; RESP 20; TEMP 97.8; O2SAT 98
[2017-09-29] VITALS: BP 118/76; PULSE 78; RESP 20; TEMP 97.8; O2SAT 98
[2017-09-29] MEDS: SODIUM CHLOR 0.9% 1000 ML INJ 1,000 ML IV SCH ×3 (04:11→22:53)
[2017-09-29] MEDS: VANCOMYCIN INJ 1,250 MG in SODIUM CHLOR 0.9% 250 ML INJ 250 ML IV SCH ×3 (05:00→22:53)
[2017-09-29 08:00] VITALS: BP 91/55; PULSE 72; RESP 19; TEMP 98.8; O2SAT 97
[2017-09-29] MEDS: SODIUM CHLORIDE 0.9% FLUSH 10 ML FLUSH IV FLUSH SCH ×2 (09:10→22:53)
[2017-09-29] MEDS: POTASSIUM CHLORIDE 20 MEQ CONTROLLED RELEASE TAB PO SCH ×2 (09:11→22:53)
--- NOTE | 2017-09-29 10:02 | HHI.PR ---
Subjective Remarks Follow-up for left hand second digit infection, IV drug use, MRSA bacteremia. Patient is resting in bed. No acute concerns. Denies any chest pain, SOB, fever , chills. Objective Vitals Vital Signs Date Time Temp Pulse Resp B/P (MAP) Pulse Ox O2 Delivery O2 Flow Rate FiO2 09/29/17 08:00 98.8 72 19 91/55 (67) 97 09/29/17 00:00 97.8 78 20 118/76 (90) 98 09/28/17 20:00 97.8 83 20 129/87 (101) 98 09/28/17 16:00 97.8 79 20 138/85 (102) 99 09/28/17 15:52 97 21 09/28/17 12:00 99.9 85 20 108/65 (79) 97 I/O 09/28/17 09/28/17 09/28/17 09/29/17 09/29/17 09/29/17 07:00 15:00 23:00 07:00 15:00 23:00 Intake Total 240 ml 1472.5 ml 262.5 ml 120 ml Output Total 1200 ml Balance 240 ml 272.5 ml 262.5 ml 120 ml Intake Oral 240 ml 960 ml 120 ml IV Total 512.5 ml 262.5 ml Output Urine Total 1200 ml # Bowel Movements 0 Result Diagram: 09/26/17 1230 09/26/17 1230 Imaging Last Impressions Ribs X-Ray 09/28/17 0000 Signed Impressions: Service Date/Time: Thursday, September 28, 2017 13:56 - CONCLUSION: 1. No evidence for displaced rib fractures or bony erosion. 2. Redemonstration of small calcified granuloma in the right lower lobe. Uli Donato MD Chest CT 09/24/17 0000 Signed Impressions: Service Date/Time: Sunday, September 24, 2017 20:18 - CONCLUSION: 1. Prior granulomatous disease. 2. 4 mm noncalcified nodule within the left lung base likely related to a noncalcified granuloma. Current guidelines state further followup is not needed. 3. Adenopathy involving the left axilla. Moses De Los Santos Jr., MD Abdomen/Pelvis CT 09/24/17 0000 Signed Impressions: Service Date/Time: Sunday, September 24, 2017 20:18 - CONCLUSION: 1. Splenomegaly. 2. No acute abnormality. Moses De Los Santos Jr., MD Hand X-Ray 09/23/17 0000 Signed Impressions: Service Date/Time: September 04:07 - CONCLUSION: Soft tissue swelling. Govind Chaudhry MD Objective Remarks GENERAL: Alert, oriented 3, NAD. SKIN: Warm and dry. HEAD: Normocephalic. EYES: No scleral icterus. No injection or drainage. NECK: Supple, trachea midline. No JVD or lymphadenopathy. CARDIOVASCULAR: Regular rate and rhythm without murmurs, gallops, or rubs. RESPIRATORY: Breath sounds equal bilaterally. No accessory muscle use. GASTROINTESTINAL: Abdomen soft, non-tender, nondistended. MUSCULOSKELETAL: No cyanosis, or edema. Left hand wrapped in dressing. Able to move fingers. BACK: Nontender without obvious deformity. No CVA tenderness. Procedures 09/23/2017 1. Incision and drainage of left index finger pulp. 2. Arthrotomy distal interphalangeal joint, left index finger. 09/25/2017 Normal left ventricular size. The left ventricular systolic function is mildly reduced with an estimated ejection fraction in the range of 55- 60 [id number]-[id number] mitral valve regurgitation. No aortic valve regurgitation. No aortic valve stenosis. There is mild tricuspid valve regurgitation. The estimated pulmonary arterial pressure is 49.4 mmHg. No evidence of endocarditis seen. A/P Problem List: (1) MRSA bacteremia ICD Code: R78.81 - Bacteremia (2) septic arthritis distal interphalangeal joint left index finger (3) Abscess of left index finger ICD Code: L02.512 - Cutaneous abscess of left hand Status: Acute (4) history of iv drug abuse Status: Chronic Assessment and Plan Mr. Quintero is a 37-year-old male with a history of IV drug use who presented to the emergency department due to left index finger swelling and pain. Hand surgery was consulted. Patient underwent I&D on 09/23/2017. - MRSA bacteremia - Left index finger septic arthritis - Status post I&D by hand surgery. - Infectious disease is following. Continue vancomycin IV with target trough 15-20. - Echocardiogram negative for any vegetation. CT abdomen pelvis, CT chest unremarkable for any acute findings. - Probable amputation of the gangrenous part of the finger on 09/30/2017. - Blood cultures from 09/27/2017 are negative so far. - Patient is intermittently refusing blood work including Vanc Trough levels. Emphasized again regarding the importance of blood work. - Right chest wall protrusion - this maybe due to thin body habitus and ribs. CXR with rib view did not reveal any acute findings. - History of IV drug use - Has been counselled regarding risks of life threatening infections. Full code. SCDs. Ines Montilla DO Sep 29, 2017 10:02 am
[2017-09-29] MEDS ORDERED: PHARMACY ORDERED LAB ONE (11:45)
[2017-09-29 12:00] VITALS: BP 116/52; PULSE 69; RESP 20; TEMP 97; O2SAT 99
[2017-09-29] MEDS: SODIUM CHLORIDE 0.9% FLUSH 10 ML FLUSH IV FLUSH PRN (12:08)
[2017-09-29 16:00] VITALS: BP 113/73; PULSE 71; RESP 19; TEMP 96.9; O2SAT 99
[2017-09-29 20:00] VITALS: BP 118/72; PULSE 77; RESP 16; TEMP 97; O2SAT 98
[2017-09-30] VITALS: BP 104/69; PULSE 80; RESP 16; TEMP 97.5; O2SAT 97
[2017-09-30] MEDS: VANCOMYCIN INJ 1,250 MG in SODIUM CHLOR 0.9% 250 ML INJ 250 ML IV SCH ×3 (04:59→20:26)
[2017-09-30 08:00] VITALS: BP 107/73; PULSE 78; RESP 17; TEMP 97.4; O2SAT 98
[2017-09-30] MEDS: SODIUM CHLORIDE 0.9% FLUSH 10 ML FLUSH IV FLUSH SCH ×2 (08:17→20:26)
[2017-09-30] MEDS: POTASSIUM CHLORIDE 20 MEQ CONTROLLED RELEASE TAB PO SCH ×2 (08:17→20:27)
--- NOTE | 2017-09-30 09:42 | PD.PN.STU ---
Subjective Remarks Patient is a 37 y/o male w/ h/o IVDU and tobaccos use who is on hospital day 6 admitted for left second digit abscess/cellulitis. Patient is s/p I&D 09/23. Today patient has no complaints. Denies fever, chills, nausea, vomiting, diarrhea, or any pain. Patient says he is getting surgery this afternoon. Per nurse, patient denied pre-op lab draw. Objective Vitals Vital Signs Date Time Temp Pulse Resp B/P (MAP) Pulse Ox O2 Delivery O2 Flow Rate FiO2 09/30/17 08:00 97.4 78 17 107/73 (84) 98 09/30/17 00:00 97.5 80 16 104/69 (81) 97 09/29/17 20:00 97.0 77 16 118/72 (87) 98 09/29/17 16:00 96.9 71 19 113/73 (86) 99 09/29/17 12:00 97.0 69 20 116/52 (73) 99 I/O 09/29/17 09/29/17 09/29/17 09/30/17 09/30/17 09/30/17 07:00 15:00 23:00 07:00 15:00 23:00 Intake Total 262.5 ml 120 ml 1200 ml 622.5 ml Output Total 1200 ml Balance 262.5 ml 120 ml 0 ml 622.5 ml Intake Oral 120 ml 1200 ml 360 ml IV Total 262.5 ml 262.5 ml Output Urine Total 1200 ml # Voids 2 # Bowel Movements 1 0 Result Diagram: 09/26/17 1230 09/26/17 1230 Imaging Allergies Coded Allergies Type Severity Reaction Last Updated Verified *MDRO Multi-Drug Resistant Organism Adverse Reaction Unknown 10/26/16 Yes Recent Impressions Ribs X-Ray 09/28/17 0000 Signed Impressions: Service Date/Time: Thursday, September 28, 2017 13:56 - CONCLUSION: 1. No evidence for displaced rib fractures or bony erosion. 2. Redemonstration of small calcified granuloma in the right lower lobe. Uli Donato MD 09/28/17 09/28/17 09/29/17 09/29/17 09/30/17 09/30/17 06:00 18:00 06:00 18:00 06:00 18:00 Intake Total 0 ml 1200 ml 512.5 ml 1582.5 ml 622.5 ml Output Total 1200 ml 1200 ml Balance 0 ml 0 ml 512.5 ml 382.5 ml 622.5 ml Intake Oral 1200 ml 1320 ml 360 ml IV Total 0 ml 512.5 ml 262.5 ml 262.5 ml Output Urine Total 1200 ml 1200 ml # Voids 2 # Bowel Movements 0 1 0 Laboratory Tests Test 09/27/17 11:29 09/27/17 17:51 09/29/17 11:45 Hepatitis A IgM Antibody NEGATIVE Hepatitis B Surface Antigen NEGATIVE Hepatitis B Core IgM Antibody NEGATIVE Hepatitis C Antibody REACTIVE Vancomycin Level Trough 13.9 MCG/ML 17.9 MCG/ML Orders Procedure Category Date Status Time Vancomycin Trough LAB 09/27/17 Complete 13:08 Misc. Nursing MED 09/28/17 Complete Information 11:45 Vascular Access Team DORI 09/28/17 In Process Consult/P 07:45 Vascular Poc IMGUS 09/28/17 Taken Ultrasound Misc. Nursing MED 09/29/17 Complete Information 11:45 Vancomycin Trough LAB 09/29/17 Complete 11:45 Creatinine LAB 09/29/17 In Process 06:00 Ribs, Bilat (W/O Exp RADDIAG 09/28/17 Resulted Cxr) Potassium Chloride MED 09/29/17 In Process (Kcl) 09:00 Physician Name Changes ADMITTING 09/29/17 Transmitted Diet Npo DIET 09/30/17 Transmitted Breakfast Diet Progression DORI 09/30/17 In Process Instructions 06:16 Scd / Rick / Foot Pump DORI 09/30/17 In Process 06:16 ^ Iv Setup For Or DORI 09/30/17 In Process 06:16 ^ Iv Piggyback For Or DORI 09/30/17 In Process 06:16 Scd Bilateral/Knee DORI 09/30/17 In Process High 06:16 Complete Blood Count LAB 10/01/17 Verified With Diff 06:00 Comprehensive LAB 10/01/17 Verified Metabolic Panel 06:00 Magnesium (Mg) LAB 10/01/17 Verified 06:00 Phosphorus (Po4) LAB 10/01/17 Verified 06:00 Basic Metabolic Panel LAB 09/30/17 In Process (Bmp) 09:09 Vital Signs Date Time Temp Pulse Resp B/P (MAP) Pulse Ox O2 Delivery O2 Flow Rate FiO2 09/30/17 08:00 97.4 78 17 107/73 (84) 98 1/25/18 00:00 97.5 80 16 104/69 (81) 97 09/29/17 20:00 97.0 77 16 118/72 (87) 98 09/29/17 16:00 96.9 71 19 113/73 (86) 99 09/29/17 12:00 97.0 69 20 116/52 (73) 99 09/29/17 08:00 98.8 72 19 91/55 (67) 97 09/29/17 00:00 97.8 78 20 118/76 (90) 98 09/28/17 20:00 97.8 83 20 129/87 (101) 98 09/28/17 16:00 97.8 79 20 138/85 (102) 99 09/28/17 15:52 97 21 09/28/17 12:00 99.9 85 20 108/65 (79) 97 09/28/17 08:00 97.4 80 19 112/63 (79) 98 09/28/17 00:00 97.5 77 18 120/79 (93) 98 09/27/17 20:00 98.2 94 20 125/81 (96) 96 09/27/17 17:28 98 09/27/17 12:00 97.3 66 16 90/55 (67) 98 Objective Remarks GENERAL: Thin, well developed male observed in bed with guest. was sleepy on interviewing. no acute distress SKIN: Warm and dry. HEAD: Atraumatic. Normocephalic. EYES: Pupils equal and round. No scleral icterus. No injection or drainage. ENT: No nasal bleeding or discharge. Mucous membranes pink and moist. NECK: Trachea midline. No JVD. CARDIOVASCULAR: Regular rate and rhythm. RESPIRATORY: No accessory muscle use. Clear to auscultation. Breath sounds equal bilaterally. GASTROINTESTINAL: Abdomen soft, non-tender, nondistended. Hepatic and splenic margins not palpable. MUSCULOSKELETAL: L first and second digit bandaged. NEUROLOGICAL: Awake and alert. No obvious cranial nerve deficits. Motor grossly within normal limits. Five out of 5 muscle strength in the arms and legs. Normal speech. PSYCHIATRIC: Appropriate mood and affect; insight and judgment normal. A/P Assessment and Plan Patient is a 37 y/o male with h/o IVDU admitted for Left second digit abscess. Patient is s/p I&D 09/23/17. Patient was started on IV Vancomycin. 1) Septic Arthritis - Patient is currently on IV vancomycin. Patient has decided to go with surgery to have the digit amputated. Will reassess after surgery today. Continue vancomycin 2) R Chest Wall protrusion - imaging was unremarkable. Most likely due to body habitus. Shahab Jeff M3 Sep 30, 2017 09:42
[2017-09-30] MEDS: SODIUM CHLOR 0.9% 1000 ML INJ 1,000 ML IV SCH ×2 (10:11→20:11)
[2017-09-30 10:40] LABS: BICARBONATE 22.4 MEQ/L (21.0-32.0); CALCIUM 9.1 MG/DL (8.5-10.1); CREATININE 0.61 MG/DL (0.60-1.30)
[2017-09-30 12:00] VITALS: BP 88/52; PULSE 71; RESP 17; TEMP 98.1; O2SAT 99
[2017-09-30] MEDS ORDERED: SODIUM CHLORID 0.9% 500 ML INJ 500 ML IV ONE (12:30)
[2017-09-30 12:58] VITALS: BP 100/58; PULSE 62; RESP 18
--- NOTE | 2017-09-30 14:16 | HHI.PR ---
Subjective Remarks as per RN - suspicious activity of patient with IV site with some blood around it. Patient noted to be hypotensive without clear source. Patient states pain controlled, afebrile. Objective Vitals Vital Signs Date Time Temp Pulse Resp B/P (MAP) Pulse Ox O2 Delivery O2 Flow Rate FiO2 09/30/17 12:58 62 18 100/58 (72) 09/30/17 12:00 98.1 71 17 88/52 (64) 99 09/30/17 08:00 97.4 78 17 107/73 (84) 98 09/30/17 00:00 97.5 80 16 104/69 (81) 97 09/29/17 20:00 97.0 77 16 118/72 (87) 98 09/29/17 16:00 96.9 71 19 113/73 (86) 99 I/O 09/29/17 09/29/17 09/29/17 09/30/17 09/30/17 09/30/17 07:00 15:00 23:00 07:00 15:00 23:00 Intake Total 262.5 ml 120 ml 1200 ml 622.5 ml Output Total 1200 ml Balance 262.5 ml 120 ml 0 ml 622.5 ml Intake Oral 120 ml 1200 ml 360 ml IV Total 262.5 ml 262.5 ml Output Urine Total 1200 ml # Voids 2 # Bowel Movements 1 0 Result Diagram: 09/26/17 1230 09/30/17 1017 Imaging Last Impressions Ribs X-Ray 09/28/17 0000 Signed Impressions: Service Date/Time: Thursday, September 28, 2017 13:56 - CONCLUSION: 1. No evidence for displaced rib fractures or bony erosion. 2. Redemonstration of small calcified granuloma in the right lower lobe. Uli Donato MD Chest CT 09/24/17 0000 Signed Impressions: Service Date/Time: Sunday, September 24, 2017 20:18 - CONCLUSION: 1. Prior granulomatous disease. 2. 4 mm noncalcified nodule within the left lung base likely related to a noncalcified granuloma. Current guidelines state further followup is not needed. 3. Adenopathy involving the left axilla. Moses De Los Santos Jr., MD Abdomen/Pelvis CT 09/24/17 0000 Signed Impressions: Service Date/Time: Sunday, September 24, 2017 20:18 - CONCLUSION: 1. Splenomegaly. 2. No acute abnormality. Moses De Los Santos Jr., MD Hand X-Ray 09/23/17 0000 Signed Impressions: Service Date/Time: September 04:07 - CONCLUSION: Soft tissue swelling. Govind Chaudhry MD Objective Remarks GENERAL: Alert, oriented 3, NAD. SKIN: Warm and dry. HEAD: Normocephalic. EYES: No scleral icterus. No injection or drainage. NECK: Supple, trachea midline. No JVD or lymphadenopathy. CARDIOVASCULAR: Regular rate and rhythm without murmurs, gallops, or rubs. RESPIRATORY: Breath sounds equal bilaterally. No accessory muscle use. GASTROINTESTINAL: Abdomen soft, non-tender, nondistended. MUSCULOSKELETAL: No cyanosis, or edema. Left hand wrapped in dressing. Able to move fingers. BACK: Nontender without obvious deformity. No CVA tenderness. Procedures 09/23/2017 1. Incision and drainage of left index finger pulp. 2. Arthrotomy distal interphalangeal joint, left index finger. 09/25/2017 Normal left ventricular size. The left ventricular systolic function is mildly reduced with an estimated ejection fraction in the range of 55- 60 Wemxj-po-eaai mitral valve regurgitation. No aortic valve regurgitation. No aortic valve stenosis. There is mild tricuspid valve regurgitation. The estimated pulmonary arterial pressure is 49.4 mmHg. No evidence of endocarditis seen. Medications and IVs Current Medications Medications (Trade) Dose Ordered Sig/Li Route Start Time Stop Time Status Last Admin Sodium Chloride 1,000 ml @ 100 mls/hr Q10H IV 09/23/17 08:11 09/27/17 04:24 (NS Flush) 2 ml UNSCH PRN IV FLUSH 09/23/17 08:15 09/29/17 12:08 (NS Flush) 2 ml BID IV FLUSH 09/23/17 09:00 09/30/17 08:17 (Zofran Inj) 4 mg Q6H PRN IVP 09/23/17 08:15 (Narcan Inj) 0.4 mg UNSCH PRN IV PUSH 09/23/17 08:15 (Milk Of Magnesia Liq) 30 ml Q12H PRN PO 09/23/17 08:15 (Senokot) 17.2 mg Q12H PRN PO 09/23/17 08:15 (Dulcolax Supp) 10 mg DAILY PRN RECTAL 09/23/17 08:15 (Lactulose Liq) 30 ml DAILY PRN PO 09/23/17 08:15 Pharmacy Profile Note 0 ml @ 0 mls/hr UNSCH OTHER 09/23/17 08:15 Vancomycin HCl 1250 mg/Sodium Chloride 262.5 ml @ 250 mls/hr Q8H IV 09/25/17 12:00 09/30/17 11:26 (KCl) 20 meq Q12HR PO 09/29/17 09:00 10/02/17 08:59 09/30/17 08:17 A/P Problem List: (1) MRSA bacteremia ICD Code: R78.81 - Bacteremia (2) septic arthritis distal interphalangeal joint left index finger (3) Abscess of left index finger ICD Code: L02.512 - Cutaneous abscess of left hand Status: Acute (4) history of iv drug abuse Status: Chronic Assessment and Plan Mr. Quintero is a 37-year-old male with a history of IV drug use who presented to the emergency department due to left index finger swelling and pain. Hand surgery was consulted. Patient underwent I&D on 09/23/2017. - MRSA bacteremia - Left index finger septic arthritis - Status post I&D by hand surgery. - Infectious disease is following. Continue vancomycin IV with target trough 15-20. - Echocardiogram negative for any vegetation. CT abdomen pelvis, CT chest unremarkable for any acute findings. - Probable amputation of the gangrenous part of the finger on 09/30/2017. - Blood cultures from 09/27/2017 are negative so far. - Patient is intermittently refusing blood work including Vanc Trough levels. Emphasized again regarding the importance of blood work. - 09/30 for amputation today. - Right chest wall protrusion - this maybe due to thin body habitus and ribs. - 09/[address] chest showed a granuloma in the lung but no other abnormalities. - History of IV drug use - Has been counselled regarding risks of life threatening infections. Full code. SCDs. Discharge Planning for OR and amputation today. Adrian Almendarez MD Sep 30, 2017 14:16
[2017-09-30 16:00] VITALS: BP 102/63; PULSE 73; RESP 18; TEMP 98.1; O2SAT 99
[2017-09-30] MEDS ORDERED: NEOMYCIN/POLYMYXIN 1 ML G.U. IRRIGANT ONE (17:23)
[2017-09-30] MEDS ORDERED: fentaNYL CITRATE 250 MCG/5 ML AMP ONE (17:36)
[2017-09-30] MEDS ORDERED: BUPIVACAINE HCL PF 0.5% 30 ML VIAL ONE (18:01)
[2017-09-30] MEDS ORDERED: LIDOCAINE HCL 2% 50 ML VIAL ONE (18:01)
[2017-09-30] MEDS ORDERED: BACITRACIN TOP OINT 15 GM TUBE ONE (18:37)
--- NOTE | 2017-09-30 18:57 | PD.OP ---
Operative Report Preoperative Diagnosis: (1) septic arthritis distal interphalangeal joint left index finger (2) felon left index finger (3) Abscess of left index finger Postoperative Diagnosis: (1) septic arthritis distal interphalangeal joint left index finger (2) felon left index finger (3) Abscess of left index finger Procedure: disarticulation through distal interphalangeal joint left index finger Anesthesia: general Surgeon: Hernandez Beverly Net Finisher(s): Jacob Leiva Operation and Findings: necrotic pulp on the radial aspect with septic arthritis and exposed distal phalanx left index finger Hernandez Beverly MD Sep 30, 2017 18:57
[2017-09-30] MEDS ORDERED: DO NOT ADM ANY ANTICOAGULANT DRUGS PRN (19:30)
[2017-09-30] MEDS ORDERED: ACETAMINOPHEN 325 MG TAB PO PRN (20:15)
[2017-09-30 20:40] VITALS: BP 115/70; PULSE 69; RESP 18; TEMP 97.1; O2SAT 100
[2017-10-01 04:00] VITALS: BP 94/50; PULSE 65; RESP 18; TEMP 96.5; O2SAT 97
[2017-10-01] MEDS: VANCOMYCIN INJ 1,250 MG in SODIUM CHLOR 0.9% 250 ML INJ 250 ML IV SCH ×3 (04:00→20:24)
[2017-10-01] MEDS: SODIUM CHLOR 0.9% 1000 ML INJ 1,000 ML IV SCH ×2 (04:29→16:11)
[2017-10-01 08:00] VITALS: BP 112/70; PULSE 77; RESP 16; TEMP 97.9; O2SAT 97
[2017-10-01] MEDS: POTASSIUM CHLORIDE 20 MEQ CONTROLLED RELEASE TAB PO SCH ×2 (08:26→20:24)
[2017-10-01] MEDS: SODIUM CHLORIDE 0.9% FLUSH 10 ML FLUSH IV FLUSH SCH ×2 (08:28→20:24)
--- NOTE | 2017-10-01 10:25 | PD.PN.STU ---
Subjective Remarks Patient is a 37 y/o male w/ h/o IVDU and tobacco use who is on hospital day 6 admitted for left second digit abscess/cellulitis. Patient is s/p I&D 09/23 and L second digit partial amputation 09/30/17 Today patient has no complaints. Denies fever, chills, nausea, vomiting, diarrhea. Patient reports 8/10 throbbing pain in L second digit, but says it is tolerable. Has urinated but has not had bowel movement yet. He reports passing gas. Objective Vitals Vital Signs Date Time Temp Pulse Resp B/P (MAP) Pulse Ox O2 Delivery O2 Flow Rate FiO2 10/01/17 08:00 97.9 77 16 112/70 (84) 97 10/01/17 04:00 96.5 65 18 94/50 (65) 97 09/30/17 20:40 97.1 69 18 115/70 (85) 100 09/30/17 19:30 97.9 62 20 99/55 (70) 100 Room Air 09/30/17 19:15 60 18 100/57 (71) 100 Room Air 09/30/17 19:00 55 20 106/54 (71) 99 Room Air 09/30/17 18:58 97.6 61 22 104/55 (71) 99 Room Air 09/30/17 16:00 98.1 73 18 102/63 (76) 99 09/30/17 12:58 62 18 100/58 (72) 09/30/17 12:00 98.1 71 17 88/52 (64) 99 I/O 09/30/17 09/30/17 09/30/17 10/01/17 10/01/17 10/01/17 07:00 15:00 23:00 07:00 15:00 23:00 Intake Total 622.5 ml 1262.5 ml 360 ml Output Total 5 ml Balance 622.5 ml 1257.5 ml 360 ml Intake Oral 360 ml 0 ml 360 ml IV Total 262.5 ml 762.5 ml Other 500 ml Estimated Blood Loss 5 ml # Voids 2 3 2 # Bowel Movements 0 0 0 Result Diagram: 09/30/17 1017 Other Results Allergies Coded Allergies Type Severity Reaction Last Updated Verified *MDRO Multi-Drug Resistant Organism Adverse Reaction Unknown 10/26/16 Yes 1/2409/29/17 09/30/17 09/30/17 10/01/17 10/01/17 06:00 18:00 06:00 18:00 06:00 18:00 Intake Total 512.5 ml 1582.5 ml 622.5 ml 0 ml 1622.5 ml Output Total 1200 ml 5 ml Balance 512.5 ml 382.5 ml 622.5 ml 0 ml 1617.5 ml Intake Oral 1320 ml 360 ml 0 ml 360 ml IV Total 512.5 ml 262.5 ml 262.5 ml 762.5 ml Other 500 ml Output Urine Total 1200 ml Estimated Blood Loss 5 ml # Voids 2 3 2 # Bowel Movements 1 0 0 0 Laboratory Tests Test 09/29/17 11:45 09/30/17 10:17 Vancomycin Level Trough 17.9 MCG/ML Blood Urea Nitrogen 10 MG/DL Creatinine 0.61 MG/DL Random Glucose 83 MG/DL Calcium Level 9.1 MG/DL Sodium Level 135 MEQ/L Potassium Level 4.3 MEQ/L Chloride Level 105 MEQ/L Carbon Dioxide Level 22.4 MEQ/L Anion Gap 8 MEQ/L Estimat Glomerular Filtration Rate 150 ML/MIN Orders Procedure Category Date Status Time Misc. Nursing MED 09/29/17 Complete Information 11:45 Vancomycin Trough LAB 09/29/17 Complete 11:45 Ribs, Bilat (W/O Exp RADDIAG 09/28/17 Resulted Cxr) Potassium Chloride MED 09/29/17 In Process (Kcl) 09:00 Physician Name Changes ADMITTING 09/29/17 Transmitted Diet Npo DIET 09/30/17 Complete Breakfast Diet Progression DORI 09/30/17 In Process Instructions 06:16 Scd / Rick / Foot Pump DORI 09/30/17 Complete 06:16 ^ Iv Setup For Or DORI 09/30/17 In Process 06:16 ^ Iv Piggyback For Or DORI 09/30/17 In Process 06:16 Scd Bilateral/Knee DORI 09/30/17 In Process High 06:16 Complete Blood Count LAB 10/01/17 In Process With Diff 06:00 Comprehensive LAB 10/01/17 In Process Metabolic Panel 06:00 Magnesium (Mg) LAB 10/01/17 In Process 06:00 Phosphorus (Po4) LAB 10/01/17 In Process 06:00 Basic Metabolic Panel LAB 09/30/17 Complete (Bmp) 09:09 Sodium Chlorid 0.9% MED 09/30/17 Complete 500 Ml Inj (Ns 500 M 12:30 Drug Screen, Random LAB 09/30/17 In Process Urine 14:33 Specimen To Be DORI 09/30/17 In Process Collected 14:33 Neomycin-Polymyxin MED 09/30/17 Complete G.U. Irr (Neosporin G 17:23 Fentanyl Inj MED 09/30/17 Complete (Fentanyl Inj) 17:36 Lidocaine 2% Inj MED 09/30/17 Complete (Xylocaine 2% Inj) 18:01 Bupivacaine Pf 0.5% MED 09/30/17 Complete Inj (Marcaine Pf 0.5 18:01 Bacitracin Oint MED 09/30/17 Complete (Baciguent Oint) 18:37 ^ Other Nursing Orders DORI 09/30/17 In Process 19:01 Misc Nursing MED 09/30/17 In Process Information 19:30 Acetaminophen MED 09/30/17 In Process (Tylenol) 20:15 Diet Regular Basic DIET 09/30/17 Transmitted Dinner Class Iv Pacu Ea 30 [facility] 09/30/17 Complete MIN General/Pacu [facility] 09/30/17 Complete Vascular Poc IMGUS 10/01/17 Taken Ultrasound Vascular Access Team DORI 10/01/17 In Process Consult/P 00:12 Vital Signs Date Time Temp Pulse Resp B/P (MAP) Pulse Ox O2 Delivery O2 Flow Rate FiO2 10/01/17 08:00 97.9 77 16 112/70 (84) 97 10/01/17 04:00 96.5 65 18 94/50 (65) 97 09/30/17 20:40 97.1 69 18 115/70 (85) 100 09/30/17 19:30 97.9 62 20 99/55 (70) 100 Room Air 09/30/17 19:15 60 18 100/57 (71) 100 Room Air 09/30/17 19:00 55 20 106/54 (71) 99 Room Air 09/30/17 18:58 97.6 61 22 104/55 (71) 99 Room Air 09/30/17 16:00 98.1 73 18 102/63 (76) 99 09/30/17 12:58 62 18 100/58 (72) 09/30/17 12:00 98.1 71 17 88/52 (64) 99 09/30/17 08:00 97.4 78 17 107/73 (84) 98 09/30/17 00:00 97.5 80 16 104/69 (81) 97 09/29/17 20:00 97.0 77 16 118/72 (87) 98 09/29/17 16:00 96.9 71 19 113/73 (86) 99 09/29/17 12:00 97.0 69 20 116/52 (73) 99 09/29/17 08:00 98.8 72 19 91/55 (67) 97 09/29/17 00:00 97.8 78 20 118/76 (90) 98 09/28/17 20:00 97.8 83 20 129/87 (101) 98 09/28/17 16:00 97.8 79 20 138/85 (102) 99 09/28/17 15:52 97 21 09/28/17 12:00 99.9 85 20 108/65 (79) 97 Objective Remarks GENERAL: WD thin white male in no acute distress observed laying in bed with guest. SKIN: Warm and dry. HEAD: Normocephalic. EYES: No scleral icterus. No injection or drainage. NECK: Supple, trachea midline. No JVD or lymphadenopathy. CARDIOVASCULAR: Regular rate and rhythm without murmurs, gallops, or rubs. RESPIRATORY: Breath sounds equal bilaterally. No accessory muscle use. GASTROINTESTINAL: Abdomen soft, non-tender, nondistended. MUSCULOSKELETAL: No cyanosis, or edema. L second digit wrapped. Normal ROM. BACK: Nontender without obvious deformity. No CVA tenderness. Medications and IVs Current Medications Medications (Trade) Dose Ordered Sig/Li Route Start Time Stop Time Status Last Admin Sodium Chloride 1,000 ml @ 100 mls/hr Q10H IV 09/23/17 08:11 09/27/17 04:24 (NS Flush) 2 ml UNSCH PRN IV FLUSH 09/23/17 08:15 09/29/17 12:08 (NS Flush) 2 ml BID IV FLUSH 09/23/17 09:00 09/30/17 20:26 (Zofran Inj) 4 mg Q6H PRN IVP 09/23/17 08:15 (Narcan Inj) 0.4 mg UNSCH PRN IV PUSH 09/23/17 08:15 (Milk Of Magnesia Liq) 30 ml Q12H PRN PO 09/23/17 08:15 (Senokot) 17.2 mg Q12H PRN PO 09/23/17 08:15 (Dulcolax Supp) 10 mg DAILY PRN RECTAL 09/23/17 08:15 (Lactulose Liq) 30 ml DAILY PRN PO 09/23/17 08:15 Pharmacy Profile Note 0 ml @ 0 mls/hr UNSCH OTHER 09/23/17 08:15 Vancomycin HCl 1250 mg/Sodium Chloride 262.5 ml @ 250 mls/hr Q8H IV 09/25/17 12:00 09/30/17 20:26 (KCl) 20 meq Q12HR PO 09/29/17 09:00 10/02/17 08:59 10/01/17 08:26 Miscellaneous Information ALL NURSING DEPARTME... UNSCH PRN .XX 09/30/17 19:30 10/01/17 19:29 (Tylenol) 650 mg Q4H PRN PO 09/30/17 20:15 09/30/17 20:26 A/P Assessment and Plan Patient is a 37 y/o male with h/o IVDU admitted for Left second digit abscess. Patient is s/p I&D 09/23/17. Patient was started on IV Vancomycin. 1) Septic Arthritis - Patient is currently on IV vancomycin. Surgery for amputation was successful per patient. REports pain but says is tolerable. Will await ortho assessment for abx treatment and discharge planning. 2) R Chest Wall protrusion - imaging was unremarkable. Most likely due to body habitus. 3) Hypotension - continues to have hypotension without known source. Per nurse, patient has had suspicious activity and bleeding at IV site. IV site has been changed. Will monitor for possible IVDU in room. Shahab Jeff M3 Oct 01, 2017 10:25
[2017-10-01] MEDS: SODIUM CHLORIDE 0.9% FLUSH 10 ML FLUSH IV FLUSH PRN (11:30)
[2017-10-01 12:00] VITALS: BP 94/53; PULSE 64; RESP 17; TEMP 98.7; O2SAT 96
--- NOTE | 2017-10-01 13:13 | HHI.PR ---
Addendum to Inpatient Note Additional Information d/w : He tried to save some skin margins so would recommend IV antibiotics for now. When cleared by for Discharge will d.w him again if ok to transition to oral or IV antibiotics still recommended. Source septic arthritis taken care of. devitalized skin margins ongoing concern. Sandra Mitchell MD Oct 01, 2017 13:13
[2017-10-01 16:00] VITALS: BP 109/63; PULSE 66; RESP 17; TEMP 98.1; O2SAT 97
--- NOTE | 2017-10-01 18:35 | HHI.PR ---
Subjective Remarks Patient is status post amputation of the left index finger. The patient states pain is controlled. Denies fevers or chills. Stable vital signs. Objective Vitals Vital Signs Date Time Temp Pulse Resp B/P (MAP) Pulse Ox O2 Delivery O2 Flow Rate FiO2 10/01/17 16:00 98.1 66 17 109/63 (78) 97 10/01/17 12:00 98.7 64 17 94/53 (67) 96 10/01/17 08:00 97.9 77 16 112/70 (84) 97 10/01/17 04:00 96.5 65 18 94/50 (65) 97 09/30/17 20:40 97.1 69 18 115/70 (85) 100 09/30/17 19:30 97.9 62 20 99/55 (70) 100 Room Air 09/30/17 19:15 60 18 100/57 (71) 100 Room Air 09/30/17 19:00 55 20 106/54 (71) 99 Room Air 09/30/17 18:58 97.6 61 22 104/55 (71) 99 Room Air I/O 09/30/17 09/30/17 09/30/17 10/01/17 10/01/17 10/01/17 07:00 15:00 23:00 07:00 15:00 23:00 Intake Total 622.5 ml 1262.5 ml 360 ml 480 ml Output Total 5 ml Balance 622.5 ml 1257.5 ml 360 ml 480 ml Intake Oral 360 ml 0 ml 360 ml 480 ml IV Total 262.5 ml 762.5 ml Other 500 ml Estimated Blood Loss 5 ml # Voids 2 3 2 5 # Bowel Movements 0 0 0 0 Result Diagram: 09/30/17 1017 Imaging Last Impressions Ribs X-Ray 09/28/17 0000 Signed Impressions: Service Date/Time: Thursday, September 28, 2017 13:56 - CONCLUSION: 1. No evidence for displaced rib fractures or bony erosion. 2. Redemonstration of small calcified granuloma in the right lower lobe. Uli Donato MD Chest CT 09/24/17 0000 Signed Impressions: Service Date/Time: Sunday, September 24, 2017 20:18 - CONCLUSION: 1. Prior granulomatous disease. 2. 4 mm noncalcified nodule within the left lung base likely related to a noncalcified granuloma. Current guidelines state further followup is not needed. 3. Adenopathy involving the left axilla. Moses De Los Santos Jr., MD Abdomen/Pelvis CT 09/24/17 0000 Signed Impressions: Service Date/Time: Sunday, September 24, 2017 20:18 - CONCLUSION: 1. Splenomegaly. 2. No acute abnormality. Moses De Los Santos Jr., MD Hand X-Ray 09/23/17 0000 Signed Impressions: Service Date/Time: September 04:07 - CONCLUSION: Soft tissue swelling. Govind Chaudhry MD Objective Remarks GENERAL: Alert, oriented 3, NAD. SKIN: Warm and dry. HEAD: Normocephalic. EYES: No scleral icterus. No injection or drainage. NECK: Supple, trachea midline. No JVD or lymphadenopathy. CARDIOVASCULAR: Regular rate and rhythm without murmurs, gallops, or rubs. RESPIRATORY: Breath sounds equal bilaterally. No accessory muscle use. GASTROINTESTINAL: Abdomen soft, non-tender, nondistended. MUSCULOSKELETAL: No cyanosis, or edema. Left hand wrapped in dressing. Able to move fingers. BACK: Nontender without obvious deformity. No CVA tenderness. Procedures 09/23/2017 1. Incision and drainage of left index finger pulp. 2. Arthrotomy distal interphalangeal joint, left index finger. 09/25/2017 Normal left ventricular size. The left ventricular systolic function is mildly reduced with an estimated ejection fraction in the range of 55- 60 Yoomj-xg-pmde mitral valve regurgitation. No aortic valve regurgitation. No aortic valve stenosis. There is mild tricuspid valve regurgitation. The estimated pulmonary arterial pressure is 49.4 mmHg. No evidence of endocarditis seen. Medications and IVs Current Medications Medications (Trade) Dose Ordered Sig/Li Route Start Time Stop Time Status Last Admin Sodium Chloride 1,000 ml @ 100 mls/hr Q10H IV 09/23/17 08:11 09/27/17 04:24 (NS Flush) 2 ml UNSCH PRN IV FLUSH 09/23/17 08:15 10/01/17 11:30 (NS Flush) 2 ml BID IV FLUSH 09/23/17 09:00 09/30/17 20:26 (Zofran Inj) 4 mg Q6H PRN IVP 09/23/17 08:15 (Narcan Inj) 0.4 mg UNSCH PRN IV PUSH 09/23/17 08:15 (Milk Of Magnesia Liq) 30 ml Q12H PRN PO 09/23/17 08:15 (Senokot) 17.2 mg Q12H PRN PO 09/23/17 08:15 (Dulcolax Supp) 10 mg DAILY PRN RECTAL 09/23/17 08:15 (Lactulose Liq) 30 ml DAILY PRN PO 09/23/17 08:15 Pharmacy Profile Note 0 ml @ 0 mls/hr UNSCH OTHER 09/23/17 08:15 Vancomycin HCl 1250 mg/Sodium Chloride 262.5 ml @ 250 mls/hr Q8H IV 09/25/17 12:00 10/01/17 11:30 (KCl) 20 meq Q12HR PO 09/29/17 09:00 10/02/17 08:59 10/01/17 08:26 Miscellaneous Information ALL NURSING DEPARTME... UNSCH PRN .XX 09/30/17 19:30 10/01/17 19:29 (Tylenol) 650 mg Q4H PRN PO 09/30/17 20:15 09/30/17 20:26 A/P Problem List: (1) MRSA bacteremia ICD Code: R78.81 - Bacteremia (2) septic arthritis distal interphalangeal joint left index finger (3) Abscess of left index finger ICD Code: L02.512 - Cutaneous abscess of left hand Status: Acute (4) history of iv drug abuse Status: Chronic (5) Hepatitis C antibody test positive ICD Code: R76.8 - Other specified abnormal immunological findings in serum Status: Acute Assessment and Plan Mr. Quintero is a 37-year-old male with a history of IV drug use who presented to the emergency department due to left index finger swelling and pain. Hand surgery was consulted. Patient underwent I&D on 09/23/2017. - MRSA bacteremia - Left index finger septic arthritis - Status post I&D by hand surgery. - Infectious disease is following. Continue vancomycin IV with target trough 15-20. - Echocardiogram negative for any vegetation. CT abdomen pelvis, CT chest unremarkable for any acute findings. - Probable amputation of the gangrenous part of the finger on 09/30/2017. - Blood cultures from 09/27/2017 are negative so far. - Patient is intermittently refusing blood work including Vanc Trough levels. Emphasized again regarding the importance of blood work. - 10/01 The patient is status post amputation of the left index finger. Case discussed with Dr. Mitchell who states sustain a discussion with Dr. Malone from hand surgery who recommends continuation of IV antibiotics for now. - Right chest wall protrusion - this maybe due to thin body habitus and ribs. - 09/[address] chest showed a granuloma in the lung but no other abnormalities. - History of IV drug use - Has been counselled regarding risks of life threatening infections. - Hepatitis C antibody reactive- check for HIV. Will check for viral load. The abdomen and pelvis shows a splenomegaly. Given the splenomegaly and current hepatitis C I will check liver ultrasound. Full code. SCDs. Discharge Planning Continue IV antibiotics. Pending ID recommendations and and surgery clearance. Adrian Almendarez MD Oct 01, 2017 18:35
[2017-10-02] VITALS: BP 130/86; PULSE 86; RESP 16; TEMP 97; O2SAT 99
[2017-10-02] MEDS: SODIUM CHLOR 0.9% 1000 ML INJ 1,000 ML IV SCH ×3 (02:19→20:26)
[2017-10-02] MEDS: VANCOMYCIN INJ 1,250 MG in SODIUM CHLOR 0.9% 250 ML INJ 250 ML IV SCH ×3 (04:07→20:26)
[2017-10-02 08:00] VITALS: BP 107/63; PULSE 83; RESP 20; TEMP 98.7; O2SAT 98
[2017-10-02] MEDS: SODIUM CHLORIDE 0.9% FLUSH 10 ML FLUSH IV FLUSH SCH ×2 (08:27→20:26)
[2017-10-02 12:00] VITALS: BP 99/53; PULSE 61; RESP 19; TEMP 96.9; O2SAT 99
[2017-10-02 16:00] VITALS: BP 149/92; PULSE 127; RESP 19; TEMP 97.7; O2SAT 97
--- NOTE | 2017-10-02 16:02 | HHI.PR ---
Subjective Remarks Pain controlled Patient afebrile Objective Vitals Vital Signs Date Time Temp Pulse Resp B/P (MAP) Pulse Ox O2 Delivery O2 Flow Rate FiO2 10/02/17 12:00 96.9 61 19 99/53 (68) 99 10/02/17 08:00 98.7 83 20 107/63 (78) 98 10/02/17 00:00 97.0 86 16 130/86 (101) 99 10/01/17 16:00 98.1 66 17 109/63 (78) 97 I/O 10/01/17 10/01/17 10/01/17 10/02/17 10/02/17 10/02/17 07:00 15:00 23:00 07:00 15:00 23:00 Intake Total 360 ml 742.5 ml 640 ml 120 ml Balance 360 ml 742.5 ml 640 ml 120 ml Intake Oral 360 ml 480 ml 640 ml 120 ml IV Total 262.5 ml # Voids 2 5 3 # Bowel Movements 0 0 0 Result Diagram: 09/30/17 1017 Objective Remarks GENERAL: Alert, oriented 3, NAD. SKIN: Warm and dry. HEAD: Normocephalic. EYES: No scleral icterus. No injection or drainage. NECK: Supple, trachea midline. No JVD or lymphadenopathy. CARDIOVASCULAR: Regular rate and rhythm without murmurs, gallops, or rubs. RESPIRATORY: Breath sounds equal bilaterally. No accessory muscle use. GASTROINTESTINAL: Abdomen soft, non-tender, nondistended. MUSCULOSKELETAL: No cyanosis, or edema. Left hand wrapped in dressing. Able to move fingers. BACK: Nontender without obvious deformity. No CVA tenderness. Procedures 09/23/2017 1. Incision and drainage of left index finger pulp. 2. Arthrotomy distal interphalangeal joint, left index finger. 09/25/2017 Normal left ventricular size. The left ventricular systolic function is mildly reduced with an estimated ejection fraction in the range of 55- 60 [id number]-ul-ohgb mitral valve regurgitation. No aortic valve regurgitation. No aortic valve stenosis. There is mild tricuspid valve regurgitation. The estimated pulmonary arterial pressure is 49.4 mmHg. No evidence of endocarditis seen. A/P Problem List: (1) MRSA bacteremia ICD Code: R78.81 - Bacteremia (2) septic arthritis distal interphalangeal joint left index finger (3) Abscess of left index finger ICD Code: L02.512 - Cutaneous abscess of left hand Status: Acute (4) history of iv drug abuse Status: Chronic (5) Hepatitis C antibody test positive ICD Code: R76.8 - Other specified abnormal immunological findings in serum Status: Acute Assessment and Plan Mr. Quintero is a 37-year-old male with a history of IV drug use who presented to the emergency department due to left index finger swelling and pain. Hand surgery was consulted. Patient underwent I&D on 09/23/2017. - MRSA bacteremia - Left index finger septic arthritis - Status post I&D by hand surgery. - Infectious disease is following. Continue vancomycin IV with target trough 15-20. - Echocardiogram negative for any vegetation. CT abdomen pelvis, CT chest unremarkable for any acute findings. - Probable amputation of the gangrenous part of the finger on 09/30/2017. - Blood cultures from 09/27/2017 are negative so far. - Patient is intermittently refusing blood work including Vanc Trough levels. Emphasized again regarding the importance of blood work. - 10/02 The patient is status post amputation of the left index finger. Case discussed with Dr. Mitchell who states sustain a discussion with Dr. Malone from hand surgery who recommends continuation of IV antibiotics for now. - Right chest wall protrusion - this maybe due to thin body habitus and ribs. - 09/[address] chest showed a granuloma in the lung but no other abnormalities. - History of IV drug use - Has been counselled regarding risks of life threatening infections. - Hepatitis C antibody reactive- check for HIV. Will check for viral load. The abdomen and pelvis shows a splenomegaly. Given the splenomegaly and current hepatitis C I will check liver ultrasound. - 10/02 Patient is refusing labs. Full code. SCDs. Discharge Planning Continue IV antibiotics. Pending ID recommendations and and surgery clearance. dArian Almendarez MD Oct 02, 2017 16:02
[2017-10-02 22:28] VITALS: BP 129/74; PULSE 93; RESP 18; TEMP 97.9; O2SAT 99
[2017-10-03] VITALS: BP 119/71; PULSE 82; RESP 18; TEMP 97.7; O2SAT 97
[2017-10-03] MEDS: SODIUM CHLOR 0.9% 1000 ML INJ 1,000 ML IV SCH ×2 (04:57→14:12)
[2017-10-03] MEDS: VANCOMYCIN INJ 1,250 MG in SODIUM CHLOR 0.9% 250 ML INJ 250 ML IV SCH ×2 (04:57→14:12)
[2017-10-03 08:00] VITALS: BP 107/58; PULSE 62; RESP 15; TEMP 96.5; O2SAT 98
[2017-10-03] MEDS: SODIUM CHLORIDE 0.9% FLUSH 10 ML FLUSH IV FLUSH SCH ×2 (08:02→19:27)
[2017-10-03] MEDS ORDERED: PHARMACY ORDERED LAB ONE (11:45)
[2017-10-03 12:00] VITALS: BP 108/70; PULSE 71; RESP 15; TEMP 97.6; O2SAT 99
--- NOTE | 2017-10-03 12:19 | HHI.PR ---
Subjective Remarks Denies cp, sob afebrile pain controlled Objective Vitals Vital Signs Date Time Temp Pulse Resp B/P (MAP) Pulse Ox O2 Delivery O2 Flow Rate FiO2 10/03/17 08:00 96.5 62 15 107/58 (74) 98 10/03/17 00:00 97.7 82 18 119/71 (87) 97 10/02/17 22:28 97.9 93 18 129/74 (92) 99 10/02/17 16:00 97.7 127 19 149/92 (111) 97 I/O 10/02/17 10/02/17 10/02/17 10/03/17 10/03/17 10/03/17 07:00 15:00 23:00 07:00 15:00 23:00 Intake Total 640 ml 370 ml 1462.5 ml Output Total 1300 ml Balance 640 ml 370 ml 162.5 ml Intake Oral 640 ml 120 ml 1200 ml IV Total 250 ml 262.5 ml Output Urine Total 1300 ml # Voids 3 # Bowel Movements 0 1 Result Diagram: 09/30/17 1017 Imaging Last Impressions Ribs X-Ray 09/28/17 0000 Signed Impressions: Service Date/Time: Thursday, September 28, 2017 13:56 - CONCLUSION: 1. No evidence for displaced rib fractures or bony erosion. 2. Redemonstration of small calcified granuloma in the right lower lobe. Uli Donato MD Chest CT 09/24/17 0000 Signed Impressions: Service Date/Time: Sunday, September 24, 2017 20:18 - CONCLUSION: 1. Prior granulomatous disease. 2. 4 mm noncalcified nodule within the left lung base likely related to a noncalcified granuloma. Current guidelines state further followup is not needed. 3. Adenopathy involving the left axilla. Moses De Los Santos Jr., MD Abdomen/Pelvis CT 09/24/17 0000 Signed Impressions: Service Date/Time: Sunday, September 24, 2017 20:18 - CONCLUSION: 1. Splenomegaly. 2. No acute abnormality. Moses De Los Santos Jr., MD Hand X-Ray 09/23/17 0000 Signed Impressions: Service Date/Time: September 04:07 - CONCLUSION: Soft tissue swelling. Govind Chaudhry MD Objective Remarks GENERAL: Alert, oriented 3, NAD. SKIN: Warm and dry. HEAD: Normocephalic. EYES: No scleral icterus. No injection or drainage. NECK: Supple, trachea midline. No JVD or lymphadenopathy. CARDIOVASCULAR: Regular rate and rhythm without murmurs, gallops, or rubs. RESPIRATORY: Breath sounds equal bilaterally. No accessory muscle use. GASTROINTESTINAL: Abdomen soft, non-tender, nondistended. MUSCULOSKELETAL: No cyanosis, or edema. Left hand wrapped in dressing. Able to move fingers. BACK: Nontender without obvious deformity. No CVA tenderness. Procedures 09/23/2017 1. Incision and drainage of left index finger pulp. 2. Arthrotomy distal interphalangeal joint, left index finger. 09/25/2017 Normal left ventricular size. The left ventricular systolic function is mildly reduced with an estimated ejection fraction in the range of 55- 60 [id number] mitral valve regurgitation. No aortic valve regurgitation. No aortic valve stenosis. There is mild tricuspid valve regurgitation. The estimated pulmonary arterial pressure is 49.4 mmHg. No evidence of endocarditis seen. Medications and IVs Current Medications Medications (Trade) Dose Ordered Sig/Li Route Start Time Stop Time Status Last Admin Sodium Chloride 1,000 ml @ 100 mls/hr Q10H IV 09/23/17 08:11 09/27/17 04:24 (NS Flush) 2 ml UNSCH PRN IV FLUSH 09/23/17 08:15 10/01/17 11:30 (NS Flush) 2 ml BID IV FLUSH 09/23/17 09:00 10/03/17 08:02 (Zofran Inj) 4 mg Q6H PRN IVP 09/23/17 08:15 (Narcan Inj) 0.4 mg UNSCH PRN IV PUSH 09/23/17 08:15 (Milk Of Magnesia Liq) 30 ml Q12H PRN PO 09/23/17 08:15 (Senokot) 17.2 mg Q12H PRN PO 09/23/17 08:15 (Dulcolax Supp) 10 mg DAILY PRN RECTAL 09/23/17 08:15 (Lactulose Liq) 30 ml DAILY PRN PO 09/23/17 08:15 Pharmacy Profile Note 0 ml @ 0 mls/hr UNSCH OTHER 09/23/17 08:15 Vancomycin HCl 1250 mg/Sodium Chloride 262.5 ml @ 250 mls/hr Q8H IV 09/25/17 12:00 10/03/17 04:57 (Tylenol) 650 mg Q4H PRN PO 09/30/17 20:15 09/30/17 20:26 Urinary Catheter: No Vascular Central Line Catheter: No A/P Problem List: (1) MRSA bacteremia ICD Code: R78.81 - Bacteremia (2) septic arthritis distal interphalangeal joint left index finger (3) Abscess of left index finger ICD Code: L02.512 - Cutaneous abscess of left hand Status: Acute (4) history of iv drug abuse Status: Chronic (5) Hepatitis C antibody test positive ICD Code: R76.8 - Other specified abnormal immunological findings in serum Status: Acute Assessment and Plan Mr. Quintero is a 37-year-old male with a history of IV drug use who presented to the emergency department due to left index finger swelling and pain. Hand surgery was consulted. Patient underwent I&D on 09/23/2017. - MRSA bacteremia - Left index finger septic arthritis - Status post I&D by hand surgery. - Infectious disease is following. Continue vancomycin IV with target trough 15-20. - Echocardiogram negative for any vegetation. CT abdomen pelvis, CT chest unremarkable for any acute findings. - Probable amputation of the gangrenous part of the finger on 09/30/2017. - Blood cultures from 09/27/2017 are negative so far. - Patient is intermittently refusing blood work including Vanc Trough levels. Emphasized again regarding the importance of blood work. - 10/02 The patient is status post amputation of the left index finger. Case discussed with Dr. Mitchell who states sustain a discussion with Dr. Malone from hand surgery who recommends continuation of IV antibiotics for now. - Right chest wall protrusion - this maybe due to thin body habitus and ribs. - 09/[address] chest showed a granuloma in the lung but no other abnormalities. As per radiology recommendations, no follow up is needed. - History of IV drug use - Has been counselled regarding risks of life threatening infections. - Hepatitis C antibody reactive- check for HIV. Will check for viral load. The abdomen and pelvis shows a splenomegaly. Given the splenomegaly and current hepatitis C I will check liver ultrasound. - 10/02 Patient is refusing labs. Full code. SCDs. Discharge Planning Continue IV antibiotics. Pending ID recommendations and and surgery clearance. Adrian Almendarez MD Oct 03, 2017 12:19
--- NOTE | 2017-10-03 12:31 | PD.ORT.PN ---
Subjective Post Op Day #: 3 Pain Scale: some pain Subjective Remarks pain left index finger Objective Vitals Vital Signs Date Time Temp Pulse Resp B/P (MAP) Pulse Ox O2 Delivery O2 Flow Rate FiO2 10/03/17 08:00 96.5 62 15 107/58 (74) 98 10/03/17 00:00 97.7 82 18 119/71 (87) 97 10/02/17 22:28 97.9 93 18 129/74 (92) 99 10/02/17 16:00 97.7 127 19 149/92 (111) 97 I/O 10/02/17 10/02/17 10/02/17 10/03/17 10/03/17 10/03/17 07:00 15:00 23:00 07:00 15:00 23:00 Intake Total 640 ml 370 ml 1462.5 ml Output Total 1300 ml Balance 640 ml 370 ml 162.5 ml Intake Oral 640 ml 120 ml 1200 ml IV Total 250 ml 262.5 ml Output Urine Total 1300 ml # Voids 3 # Bowel Movements 0 1 Result Diagram: 09/30/17 1017 Objective Remarks wound left index finger clean and moderated edema, but no erythema adaptic with just some minimal bloody drainage Assessment & Plan Ortho Post Op Day #: 3 Problem List: (1) 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 to see tomorrow and make final disposition plans continue IV antibiotics Anel Taylor MD Oct 03, 2017 12:31
[2017-10-03 16:00] VITALS: BP 120/72; PULSE 69; RESP 16; TEMP 95.6; O2SAT 100
[2017-10-03 20:00] VITALS: BP 104/75; PULSE 86; RESP 18; TEMP 98; O2SAT 97
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
[2017-10-04 00:11] VITALS: BP 119/80; PULSE 91; RESP 18; TEMP 97.9; O2SAT 97
[2017-10-04] MEDS: SODIUM CHLOR 0.9% 1000 ML INJ 1,000 ML IV SCH ×2 (01:44→13:59)
[2017-10-04] MEDS: VANCOMYCIN INJ 1,250 MG in SODIUM CHLOR 0.9% 250 ML INJ 250 ML IV SCH ×2 (01:44→13:59)
[2017-10-04 08:00] VITALS: BP 97/63; PULSE 67; RESP 17; TEMP 96.8; O2SAT 99
[2017-10-04 12:00] VITALS: BP 101/55; PULSE 76; RESP 17; TEMP 98.2; O2SAT 99
[2017-10-04] MEDS: SODIUM CHLORIDE 0.9% FLUSH 10 ML FLUSH IV FLUSH SCH (13:59)
[2017-10-04 16:00] VITALS: BP 126/78; PULSE 109; RESP 17; TEMP 96.6; O2SAT 99
[2017-10-04] MEDS ORDERED: BACT800T5 PO (16:42)
--- NOTE | 2017-10-04 16:44 | HHI.DCPOC ---
Discharge Care Plan Diagnosis: (1) Hepatitis C antibody test positive (2) septic arthritis distal interphalangeal joint left index finger (3) history of iv drug abuse (4) MRSA bacteremia (5) Abscess of left index finger (6) Cellulitis Goals to Promote Your Health * To prevent worsening of your condition and complications * To maintain your health at the optimal level Directions to Meet Your Goals Take your medications as prescribed Follow your dietary instruction Follow activity as directed Keep your appointments as scheduled Take your immunizations and boosters as scheduled If your symptoms worsen call your PCP, if no PCP go to Urgent Care Center or Emergency Room Smoking is Dangerous to Your Health. Avoid second hand smoke Call the 24-hour hour crisis hotline for domestic abuse at Adrian Almendarez MD Oct 04, 2017 16:44
--- NOTE | 2017-10-04 16:48 | HHI.DS ---
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 Incision and drainage of left index finger pulp. 2. Arthrotomy distal interphalangeal joint, left index finger. 09/25/2017 Normal left ventricular size. The left ventricular systolic function is mildly reduced with an estimated ejection fraction in the range of 55- 60 [id number]-[id number] mitral valve regurgitation. No aortic valve regurgitation. No aortic valve stenosis. There is mild tricuspid valve regurgitation. The estimated pulmonary arterial pressure is 49.4 mmHg. No evidence of endocarditis seen. Brief History - From Admission 37-year-old male with a history of IV drug use, [id number] history of smoking , who presents with three-day history of worsening swelling on the left second digit. He says that he used a needle to try and drain pus a few days ago, which made it worse. He does report chills, however denies fevers. Denies any chest pain, shortness of breath, nausea, vomiting, diarrhea. CBC/BMP: 09/30/17 1017 Significant Findings Laboratory Tests Test 10/03/17 13:00 10/04/17 06:00 Vancomycin Level Trough 23.1 MCG/ML (5.0-10.0) Imaging Last Impressions Ribs X-Ray 09/28/17 0000 Signed Impressions: Service Date/Time: Thursday, September 28, 2017 13:56 - CONCLUSION: 1. No evidence for displaced rib fractures or bony erosion. 2. Redemonstration of small calcified granuloma in the right lower lobe. Uli Donato MD Chest CT 09/24/17 0000 Signed Impressions: Service Date/Time: Sunday, September 24, 2017 20:18 - CONCLUSION: 1. Prior granulomatous disease. 2. 4 mm noncalcified nodule within the left lung base likely related to a noncalcified granuloma. Current guidelines state further followup is not needed. 3. Adenopathy involving the left axilla. Moses De Los Santos Jr., MD Abdomen/Pelvis CT 09/24/17 0000 Signed Impressions: Service Date/Time: Sunday, September 24, 2017 20:18 - CONCLUSION: 1. Splenomegaly. 2. No acute abnormality. Moses De Los Santos Jr., MD Hand X-Ray 09/23/17 0000 Signed Impressions: Service Date/Time: September 04:07 - CONCLUSION: Soft tissue swelling. Govind Chaudhry MD PE at Discharge GENERAL: Alert, oriented 3, NAD. SKIN: Warm and dry. HEAD: Normocephalic. EYES: No scleral icterus. No injection or drainage. NECK: Supple, trachea midline. No JVD or lymphadenopathy. CARDIOVASCULAR: Regular rate and rhythm without murmurs, gallops, or rubs. RESPIRATORY: Breath sounds equal bilaterally. No accessory muscle use. GASTROINTESTINAL: Abdomen soft, non-tender, nondistended. MUSCULOSKELETAL: No cyanosis, or edema. Left hand wrapped in dressing. Able to move fingers. BACK: Nontender without obvious deformity. No CVA tenderness. Pt update on day of discharge afebrile, pain controlled, patient not getting pain medication. Denies nausea vomiting or abdominal pain. Pt Condition on Discharge: Stable Discharge Disposition: Discharge Home Discharge Time: <= 30 minutes Discharge Instructions DIET: Follow Instructions for: As Tolerated, No Restrictions Activities you can perform: Regular-No Restrictions Activities to Avoid: Driving Follow up Referrals: Hand Surgery - 1 Week New Medications: Sulfamethoxazole-Trimethoprim (Bactrim DS) 800-160 Mg Tab 1 TAB PO BID for Infection, #20 TAB 0 Refills Adrian Almendarez MD Oct 04, 2017 16:48
[2017-10-05] MEDS ORDERED: PHARMACY ORDERED LAB ONE (01:45)
== END 2017-10-04 18:11 | disposition home or self-care (01) | DRG 256 ==
LOC: NEPE 02:49 → NEDA 08:12 → NEPFCDU 14:01 → OBSVTOIN 09-24 08:27 → N07B 09-25 15:18
PROVIDERS: ADMIT Hospitalist; ATTEND Hospitalist
PROC: 0H9GXZX Drainage of Left Hand Skin, External Approach, Diagnostic (ICD-10-PCS; 2017-09-23)
PROC: 0J9K0ZX Drainage of Left Hand Subcutaneous Tissue and Fascia, Open Approach, Diagnostic (ICD-10-PCS; 2017-09-23)
PROC: 0R9 Upper Joints, Drainage (ICD-10-PCS; 2017-09-23)
PROC: 0JBK0ZZ Excision of Left Hand Subcutaneous Tissue and Fascia, Open Approach (ICD-10-PCS; 2017-09-26)
PROC: 0X6P0Z3 Detachment at Left Index Finger, Low, Open Approach (ICD-10-PCS; principal; 2017-09-30 17:35)
DX: I96 Gangrene, not elsewhere classified (principal); M00.042 Staphylococcal arthritis, left hand; I95.9 Hypotension, unspecified; J84.10 Pulmonary fibrosis, unspecified; R78.81 Bacteremia; R16.1 Splenomegaly, not elsewhere classified; L02.512 Cutaneous abscess of left hand; B19.20 Unspecified viral hepatitis C without hepatic coma; F17.210 Nicotine dependence, cigarettes, uncomplicated; L03.012 Cellulitis of left finger; F19.10 Other psychoactive substance abuse, uncomplicated; B95.62 Methicillin resistant Staphylococcus aureus infection as the cause of diseases classified elsewhere; M21.242 Flexion deformity, left finger joints; Z53.20 Procedure and treatment not carried out because of patient's decision for unspecified reasons; Z86.711 Personal history of pulmonary embolism; Z86.14 Personal history of Methicillin resistant Staphylococcus aureus infection
CPT/HCPCS: 10060; 71110; 71260; 73120; 74177; 76937; 80048; 80053; 80074; 80202; 80307; 82248; 82948; 83605; 85025; 85610; 85730; 86140; 86403; 87015; 87040; 87070; 87102; 87116; 87147; 87186; 87205; 87206; 88305; 88311; 93306; 96361; 96365; 96375; G0378; J0131; J1100; J1170; J1200; J1885; J2175; J2250; J2270; J2405; J2765; J3010; J3370; J7030; J7040; J7050; J7120; Q9963; Q9967

== ENCOUNTER 2017-10-08 04:39 | Inpatient (IN) | payer SELFPAY ==
[2017-10-08] VITALS (34 sets, daily range): BP systolic 68–107; BP diastolic 34–66; PULSE 85–117; RESP 15–30; TEMP 97.7–103; O2SAT 95–100
[~2017-10-08] VITALS: Ht 182.9 cm; Wt 68.5 kg
[~2017-10-08 04:39] MED LIST changes: -CEPH-460 PO
[2017-10-08] MEDS ORDERED: SODIUM CHLOR 0.9% 1000 ML INJ 1,000 ML IV ONE ×2 (05:05)
[2017-10-08] MEDS ORDERED: SODIUM CHLOR 0.9% 1000 ML INJ 100 ML IV ONE (05:05)
[2017-10-08] MEDS ORDERED: ACETAMINOPHEN 325 MG TAB PO ONE (05:15)
[2017-10-08] MEDS ORDERED: cefTRIAXone INJ 2,000 MG in SODIUM CHLORIDE 0.9% INJ 100 ML IV ONE (05:15)
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
[2017-10-08 05:38] LABS: AUTOMATED NEUTROPHIL # 6.3 TH/MM3 (1.8-7.7); BASOPHIL % 0.3 % (0.0-2.0); EOSINOPHIL % 0.1 % (0.0-4.0); HEMATOCRIT 37.5 % (39.0-51.0); HEMOGLOBIN 12.9 GM/DL (13.0-17.0); LYMPH % 4.2 % (9.0-44.0); LYMPHOCYTE # 0.3 TH/MM3 (1.0-4.8); MEAN CELL VOLUME 84.6 FL (80.0-100.0); MEAN CORPUSCULAR HEMOGLOBIN 29.1 PG (27.0-34.0); MEAN CORPUSCULAR HGB CONC 34.4 % (32.0-36.0); MONO % 0.3 % (0.0-8.0); NEUT % 95.1 % (16.0-70.0); PLATELET COUNT 325 TH/MM3 (150-450); RED BLOOD COUNT 4.43 MIL/MM3 (4.50-5.90); RED CELL DISTRIBUTION WIDTH 14.5 % (11.6-17.2); WHITE BLOOD COUNT 6.6 TH/MM3 (4.0-11.0)
[2017-10-08 05:41] LABS: INTERNATIONAL NORMALIZED RATIO 1.2 RATIO; PROTHROMBIN TIME - PATIENT 11.7 SEC (9.8-11.6)
[2017-10-08 05:42] LABS: ALBUMIN 3.6 GM/DL (3.4-5.0); ALT (GPT) 106 U/L (12-78); AST (GOT) 248 U/L (15-37); BICARBONATE 23.5 MEQ/L (21.0-32.0); BLOOD UREA NITROGEN 18 MG/DL (7-18); CALCIUM 8.6 MG/DL (8.5-10.1); CHLORIDE 104 MEQ/L (98-107); CREATININE 1.48 MG/DL (0.60-1.30); GLOMERULAR FILTRATION RATE 54 ML/MIN (>89); GLUCOSE,RANDOM 88 MG/DL (74-106); SODIUM (NA) 139 MEQ/L (136-145)
[2017-10-08 05:43] LABS: LACTIC ACID SEPSIS PROTOCOL 3.4 mmol/L (0.4-2.0)
[2017-10-08 05:46] LABS: ALKALINE PHOSPHATASE 168 U/L (45-117); TOTAL BILIRUBIN ADULT 1.1 MG/DL (0.2-1.0); TOTAL PROTEIN 7.9 GM/DL (6.4-8.2); TROPONIN I LESS THAN 0.02 NG/ML (0.02-0.05)
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
[2017-10-08] MEDS ORDERED: ONDANSETRON HCL 4 MG/2 ML VIAL IV PUSH PRN (07:15)
[2017-10-08] MEDS ORDERED: POTASSIUM PHOSPHATE MONOBASIC 500 MG TAB PO PRN (07:15)
[2017-10-08] MEDS ORDERED: RESP: ALBUTEROL 2.5 MG/IPRATROPIUM 0.5 MG NEB (PRN) INH (07:15)
[2017-10-08] MEDS ORDERED: Vancomycin Consult Pharmacy 1 EA OTHER SCH (07:15)
[2017-10-08] MEDS ORDERED: POTASSIUM PHOSPHATE INJ 30 MMOL in SODIUM CHLOR 0.9% 250 ML INJ 250 ML IV PRN (07:15)
[2017-10-08] MEDS ORDERED: POTASSIUM CHLORIDE 25 MEQ EFFERVESCENT TAB PO PRN (07:15)
[2017-10-08] MEDS ORDERED: POTASSIUM CHLOR 40 MEQ PREMIX 100 ML IV PRN ×2 (07:15)
[2017-10-08] MEDS ORDERED: MAGNESIUM SULFATE INJ 2 GM in SODIUM CHLORIDE 0.9% INJ 96 ML IV PRN (07:15)
[2017-10-08] MEDS ORDERED: MAGNESIUM OXIDE 400 MG TAB PO PRN (07:15)
[2017-10-08] MEDS ORDERED: SODIUM PHOSPHATE INJ 30 MMOL in SODIUM CHLOR 0.9% 250 ML INJ 240 ML IV PRN (07:15)
[2017-10-08] MEDS ORDERED: MAGNESIUM SULFATE INJ 4 GM in SODIUM CHLORIDE 0.9% INJ 92 ML IV PRN (07:15)
[2017-10-08] MEDS ORDERED: MAGNESIUM HYDROXIDE SUSP 30 ML CUP PO PRN (07:15)
[2017-10-08] MEDS ORDERED: POTASSIUM PHOSPHATE MONOBASIC 500 MG TAB PO/TUBE PRN (07:15)
[2017-10-08] MEDS ORDERED: POTASSIUM CHLOR 20 MEQ PREMIX 100 ML IV PRN ×2 (07:15)
[2017-10-08] MEDS ORDERED: CHLORHEXIDINE GLUCONATE 2 % 1 PACK (2 CLOTHS) TOP PRN (07:15)
[2017-10-08] MEDS ORDERED: MISCELLANEOUS NURSING INFORMATION XX SCH (07:15)
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
[2017-10-08 07:47] LABS: BILIRUBIN, URINE NEG (NEG); BLOOD, URINE TRACE (NEG); GLUCOSE,URINE NEG (NEG); HYALINE CAST, URINE 6 /lpf (RARE); KETONE, URINE NEG (NEG); MUCUS URINE MANY /lpf (OCC); NITRITE,URINE NEG (NEG); PH, URINE 5.5 (5.0-8.5); SQUAMOUS EPITHELIAL CELL URINE <1 /hpf (0-5); URINE COLOR YELLOW (YELLW/STRAW); URINE LEUKOCYTE ESTERASE NEG (NEG)
[2017-10-08] MEDS ORDERED: VANCOMYCIN INJ 1,500 MG in SODIUM CHLORID 0.9% 500 ML INJ 500 ML IV ONE (08:00)
[2017-10-08] MEDS: CEFEPIME INJ 2,000 MG in SODIUM CHLORIDE 0.9% INJ 100 ML IV SCH ×3 (08:03→22:28)
[2017-10-08] MEDS: SODIUM CHLOR 0.9% 1000 ML INJ 1,000 ML IV SCH ×3 (08:03→22:29)
[2017-10-08] MEDS: LACTATED RINGER'S 1000 ML INJ 1,000 ML IV SCH ×3 (08:11→22:28)
[2017-10-08] MEDS ORDERED: IOHEXOL 350 MG/ML 10 ML VIAL (for RAD DIAG) IVCONTRAST ONE (08:39)
--- NOTE | 2017-10-08 08:59 | RADRPT ---
EXAM DATE/TIME: 10/08/2017 08:22 [facility] COMPARISON: CT THORAX W CONTRAST, September 24, 2017, 20:18. INDICATIONS : Right upper quadrant pain. Evaluate for abscess from IV drug abuse. IV CONTRAST: 95 cc Omnipaque 350 (iohexol) IV ; Cumulative dose for multiple exams. RADIATION DOSE: 6.54 CTDIvol (mGy) ; Combined studies - Thorax/Abdomen/Pelvis MEDICAL HISTORY : Cardiovascular disease. Hepatitis C. IVDA SURGICAL HISTORY : None. ENCOUNTER: Initial ACUITY: 1 day PAIN SCALE: Non-responsive LOCATION: Bilateral chest TECHNIQUE: Volumetric scanning of the chest was performed. Using automated exposure control and adjustment of t he mA and/or kV according to patient size, radiation dose was kept as low as reasonably achievable to obtain optimal diagnostic quality images. DICOM format image data is available electronically for review and comparison. Follow-up recommendations for detected pulmonary nodules are based at a minimum on nodule size and pa tient risk factors according to Fleischner Society Guidelines. FINDINGS: LUNGS: Bibasilar intraalveolar pulmonary infiltrates observed. These are new from the prior examination. The infiltrates obscure the 4 mm nodule within the left lung base on the prior study. Emphysematous coleman ges are noted within the apices. A calcified granuloma is seen within the right base. No pulmonary ab scess. PLEURA: No effusions or pneumothoraces. MEDIASTINUM: There is a 1.9 x 1.6 cm nodular density within the right hilum felt to relate to an enlarged lymph no de. It is partially calcified. The heart is normal in size. No pericardial effusion. Pulmonary arteri es and aorta are normal in caliber. AXILLAE: Within normal limits. No lymphadenopathy. SKELETAL: Within normal limits for patient age. MISCELLANEOUS: Please see the CT of the abdomen and pelvis reported separately. CONCLUSION: 1. Bibasilar pulmonary infiltrates likely infectious in etiology. 2. Solitary large lymph node within the right hilum felt to be reactive in nature. 3. Underlying emphysematous changes. 4. No abscess. Moses De Los Santos Jr., MD on October 08, 2017 at 8:48 Board Certified Radiologist. This report was verified electronically.
[2017-10-08] MEDS: DOCUSATE SODIUM 50 MG/SENNA 8.6 MG TAB PO SCH ×2 (09:00→21:22)
[2017-10-08] MEDS: HEPARIN SODIUM - SQ 10,000 UNITS/ML VIAL SQ SCH ×3 (09:01→23:07)
--- NOTE | 2017-10-08 09:04 | RADRPT ---
EXAM DATE/TIME: 10/08/2017 08:22 [facility] COMPARISON: CT ABDOMEN & PELVIS W CONTRAST, September 24, 2017, 20:18. INDICATIONS : Right upper quadrant pain. Evaluate for abscess from IV drug abuse. IV CONTRAST: 95 cc Omnipaque 350 (iohexol) IV ; Cumulative dose for multiple exams. ORAL CONTRAST: No oral contrast ingested. RADIATION DOSE: 6.54 CTDIvol (mGy) ; Combined studies - Thorax/Abdomen/Pelvis MEDICAL HISTORY : Cardiovascular disease. Hepatitis C. IVDA SURGICAL HISTORY : None. ENCOUNTER: Initial ACUITY: 1 day PAIN SCALE: Non-responsive LOCATION: upper quadrant TECHNIQUE: Volumetric scanning of the abdomen and pelvis was performed. Using automated exposure control and ad justment of the mA and/or kV according to patient size, radiation dose was kept as low as reasonably achievable to obtain optimal diagnostic quality images. DICOM format image data is available electro nically for review and comparison. FINDINGS: LOWER LUNGS: See the CT of the thorax dictated separately. LIVER: Homogeneous density without lesion. There is no dilation of the biliary tree. No calcified gallston es. The gallbladder shows pericholecystic fluid but no wall thickening or stones observed. The gallbl adder is not distended. SPLEEN: Normal size without lesion. PANCREAS: Within normal limits. KIDNEYS: Normal in size and shape. There is no mass, stone or hydronephrosis. ADRENAL GLANDS: Within normal limits. VASCULAR: There is no aortic aneurysm. BOWEL/MESENTERY: The stomach, small bowel, and colon demonstrate no acute abnormality. There is no free intraperitone al air or fluid. ABDOMINAL WALL: Within normal limits. RETROPERITONEUM: There is no lymphadenopathy. BLADDER: No wall thickening or mass. REPRODUCTIVE: Within normal limits. INGUINAL: There is no lymphadenopathy or hernia. MUSCULOSKELETAL: Within normal limits for patient age. CONCLUSION: 1. There is fluid surrounding the gallbladder but the gallbladder is not distended and there is no wa ll thickening. No calcified stones are observed. The exact etiology is uncertain. This could relate t o just loculated ascitic fluid and I cannot completely exclude acalculous cholecystitis although this is felt much less likely. Ultrasound could be performed to further evaluate. 2. No acute abnormality otherwise. Moses De Los Santos Jr., MD on October 08, 2017 at 8:57 Board Certified Radiologist. This report was verified electronically.
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
[2017-10-08] MEDS ORDERED: GADODIAMIDE PF 287 MG/ML 5 ML VIAL (for RAD MRI) IVCONTRAST ONE (10:24)
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
[2017-10-08] MEDS ORDERED: LACTATED RINGER'S 1000 ML INJ 1,000 ML IV ONE ×2 (12:00→16:45)
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
[2017-10-08] MEDS: VANCOMYCIN INJ 1,250 MG in SODIUM CHLOR 0.9% 250 ML INJ 250 ML IV SCH (19:43)
--- NOTE | 2017-10-08 21:03 | RADRPT ---
EXAM DATE/TIME: 10/08/2017 19:45 [facility] COMPARISON: HAND LEFT LIMITED (2VWS), September 23, 2017, 4:07. INDICATIONS : Left hand second digit amputation. MEDICAL HISTORY : None. SURGICAL HISTORY : Amputation of 2nd digit left hand ENCOUNTER: Initial ACUITY: 1 week PAIN SCORE: 6/10 LOCATION: Left hand FINDINGS: The patient is status post partial amputation of the left index finger at the level of the distal pha lanx. There is soft tissue swelling involving the remainder of the index finger. CONCLUSION: Status post partial indication of the left index finger at the level of the distal phalanx with resid ual soft tissue swelling noted. Bruce Scott MD on October 08, 2017 at 20:58 Board Certified Radiologist. This report was verified electronically.
[2017-10-09] VITALS (9 sets, daily range): BP systolic 95–109; BP diastolic 56–67; PULSE 77–96; RESP 16–18; TEMP 95.8–98.1; O2SAT 98–100
[2017-10-09] MEDS ORDERED: CHLORHEXIDINE GLUCONATE 2 % 1 PACK (2 CLOTHS) TOP SCH (04:00)
[2017-10-09] MEDS: CEFEPIME INJ 2,000 MG in SODIUM CHLORIDE 0.9% INJ 100 ML IV SCH ×3 (05:52→21:12)
--- NOTE | 2017-10-09 08:21 | MB ---
cc: NGUYEN NIX DATE OF CONSULTATION 10/08/2017 REASON FOR CONSULTATION Prior left index finger amputation by Dr. Beverly and follow-up. HISTORY OF PRESENT ILLNESS Alejandro Quintero is a 37-year-old male with past medical history significant for MRSA mitral valve endocarditis with septic emboli. He recently underwent amputation of the left index finger through the distal interphalangeal joint by my partner, Dr. Beverly, for a significant infection and osteomyelitis. The patient was recently discharged on Wednesday and re-presented to the hospital today. The patient was discharged at that time with oral antibiotics. Per the patient he has not taken the antibiotics. He has been using IV Dilaudid. He presents for a fever and back pain. He has been started on IV antibiotics at this time and was seen by Infectious Disease. The patient denies any significant pain over the finger. Denies any drainage. PAST MEDICAL HISTORY 1. MRSA mitral valve endocarditis. 2. Hepatitis C. 3. Septic pulmonary embolism. PAST SURGICAL HISTORY amputation of the left index finger through the DIP joint. MEDICATIONS NIACIN. SOCIAL HISTORY The patient uses IV drugs including IV Dilaudid. PHYSICAL EXAMINATION GENERAL: The patient is sleeping in bed. VITAL SIGNS: Pulse 92, respiratory rate 24, blood pressure 105/64, pulse ox 100. LEFT INDEX FINGER: Exam of the left index finger shows no drainage. Sutures in place with good capillary refill to the flap. No pain with flexion of the PIP joint. No tenderness along the flexor tendon sheath. LABORATORY White count 6.6. Lactic acid 2. IMAGING X-rays of the left hand show amputation of the left index finger to the PIP joint without any evidence of persistent infection or osteomyelitis. ASSESSMENT AND PLAN A 37-year-old male status post prior amputation of the left index finger to the DIP joint recently my partner, Dr. Beverly, re-presented for fever and back pain after not taking his antibiotics. At this time no evidence of problems or infection of the left index finger. Will continue to follow. No indication for surgical intervention at this time. The patient should continue on antibiotics per Infectious Disease. MD ESHA Edmonds/BT /11:29 PM /8:10 AM KEY
[2017-10-09] MEDS: DOCUSATE SODIUM 50 MG/SENNA 8.6 MG TAB PO SCH ×2 (09:00→21:00)
--- NOTE | 2017-10-09 09:02 | HHI.PR ---
Subjective Remarks In the bed, appears sleepy. Says she feel better no events overnight. No fever or chills.No n/v/d/c. No pain . Objective Vitals Vital Signs Date Time Temp Pulse Resp B/P (MAP) Pulse Ox O2 Delivery O2 Flow Rate FiO2 10/09/17 06:00 83 10/09/17 04:00 90 10/09/17 04:00 98.1 90 17 95/56 (69) 100 10/09/17 03:23 100 10/09/17 02:00 95 10/09/17 00:00 98.0 96 16 104/57 (73) 100 10/09/17 00:00 96 10/08/17 23:45 100 10/08/17 22:00 97 10/08/17 20:00 98.2 98 18 100/58 (72) 98 10/08/17 20:00 98 10/08/17 18:00 101 10/08/17 16:45 93 30 105/64 (78) 99 10/08/17 16:45 93 10/08/17 16:30 92 24 107/64 (78) 100 10/08/17 16:30 92 10/08/17 16:15 90 27 106/66 (79) 100 10/08/17 16:15 90 10/08/17 16:00 92 24 106/66 (79) 100 10/08/17 16:00 99 10/08/17 16:00 92 10/08/17 14:15 87 10/08/17 14:00 87 22 89/51 (64) 100 10/08/17 14:00 87 10/08/17 13:30 95 10/08/17 13:28 92 18 13:15 88 10/08/17 13:00 90 10/08/17 13:00 90 28 83/50 (61) 100 10/08/17 12:59 88 26 83/49 (60) 100 10/08/17 12:59 88 10/08/17 12:45 89 18 12:45 89 21 82/46 (58) 100 10/08/17 12:30 88 20 84/46 (59) 100 10/08/17 12:30 88 10/08/17 12:15 85 18 12:15 85 21 72/41 (51) 100 10/08/17 12:09 90 24 83/51 (62) 100 10/08/17 12:09 90 10/08/17 12:08 89 22 77/47 (57) 98 10/08/17 12:08 89 10/08/17 12:07 89 10/08/17 12:07 89 25 79/48 (58) 100 10/08/17 12:06 88 10/08/17 12:06 88 22 75/46 (56) 100 10/08/17 12:05 89 10/08/17 12:05 89 21 77/48 (58) 100 10/08/17 12:04 87 21 75/47 (56) 100 10/08/17 12:04 87 10/08/17 12:03 90 10/08/17 12:03 90 22 79/50 (60) 100 10/08/17 12:00 88 21 74/49 (57) 100 10/08/17 12:00 88 10/08/17 10:41 10/08/17 09:45 97.7 90 20 97/57 (70) 97 Room Air 10/08/17 09:02 97 21 93/55 (68) 95 Room Air I/O 10/08/17 10/08/17 10/08/17 10/09/17 10/09/17 10/09/17 07:00 15:00 23:00 07:00 15:00 23:00 Intake Total 3100 ml 100 ml 682.5 ml 100 ml Output Total 1300 ml 1200 ml Balance 3100 ml 100 ml -617.5 ml -1100 ml Intake Oral 320 ml IV Total 3100 ml 100 ml 362.5 ml 100 ml Output Urine Total 1300 ml 1200 ml # Bowel Movements 0 Result Diagram: 10/08/17 0509 10/08/17 0509 Imaging Last Impressions Chest X-Ray 10/08/17 0505 Signed Impressions: Service Date/Time: Sunday, October 08, 2017 05:11 - CONCLUSION: No acute disease. Basim Kimball MD Thoracic Spine MRI 10/08/17 0000 Signed Impressions: Service Date/Time: Sunday, October 08, 2017 10:01 - CONCLUSION: Negative exam with no evidence of abscess. Dakota Martinez MD Skull X-Ray 10/08/17 0000 Signed Impressions: Service Date/Time: Sunday, October 08, 2017 09:46 - CONCLUSION: 1. No metallic foreign bodies. Patient is cleared for MRI. 2. Screw-plate fixation device of the right maxilla. Dakota Martinez MD Hand X-Ray 10/08/17 0000 Signed Impressions: Service Date/Time: Sunday, October 08, 2017 19:45 - CONCLUSION: Status post partial indication of the left index finger at the level of the distal phalanx with residual soft tissue swelling noted. Bruce Scott MD Chest CT 10/08/17 0000 Signed Impressions: Service Date/Time: Sunday, October 08, 2017 08:22 - CONCLUSION: 1. Bibasilar pulmonary infiltrates likely infectious in etiology. 2. Solitary large lymph node within the right hilum felt to be reactive in nature. 3. Underlying emphysematous changes. 4. No abscess. Moses De Los Santos Jr., MD Abdomen/Pelvis CT 10/08/17 0000 Signed Impressions: Service Date/Time: Sunday, October 08, 2017 08:22 - CONCLUSION: 1. There is fluid surrounding the gallbladder but the gallbladder is not distended and there is no wall thickening. No calcified stones are observed. The exact etiology is uncertain. This could relate to just loculated ascitic fluid and I cannot completely exclude acalculous cholecystitis although this is felt much less likely. Ultrasound could be performed to further evaluate. 2. No acute abnormality otherwise. Moses De Los Santos Jr., MD Objective Remarks GENERAL: Fril male, in bed appears sleepy, in nad. CARDIOVASCULAR: Tachycardic. Regular rate and rhythm. RESPIRATORY: No accessory muscle use. Clear to auscultation. Breath sounds equal bilaterally. GASTROINTESTINAL: Abdomen soft, non-tender, nondistended. Hepatic and splenic margins not palpable. MUSCULOSKELETAL: Extremities without clubbing, cyanosis, or edema. No obvious deformities. NEUROLOGICAL: Awake and alert. No obvious cranial nerve deficits. Motor grossly within normal limits. Five out of 5 muscle strength in the arms and legs. Normal speech. PSYCHIATRIC: Appropriate mood and affect; insight and judgment normal. A/P Assessment and Plan 37yM with history of IVDA and mitral valve endocarditis, recently with left index finger septic joint and abscess who stopped taking his Bactrim and never got his prescription filled and is now found to be in severe sepsis. Will ivf resuscitate and admit to ICU. trend lactates. will obtain MRI t-spine to rule out septic diskitis given t-spine tenderness and get CT chest/abd/pelvis due to his complaints over right chest wall. zaidi culture and broad spectrum abx including vancomycin given recent MRSA infection. Severe Sepsis Acute Kidney Injury Lactic Acidosis, repeat LA back to normal IV drug abuse, active - admit to ICU. - IVF resuscitation - trend daily Cr - strict I/Os - vancomycin, cefepime for empiric coverage - blood cultures - ID consult since they have recently been involved in his care. ID ff, appreciate recommendations. Transfer out of ICU Opal Rust MD Oct 09, 2017 09:02
[2017-10-09] MEDS ORDERED: SODIUM CHLOR 0.9% 1000 ML INJ 1,000 ML IV ONE (09:15)
[2017-10-09] MEDS: VANCOMYCIN INJ 1,250 MG in SODIUM CHLOR 0.9% 250 ML INJ 250 ML IV SCH ×2 (09:58→22:33)
[2017-10-09] MEDS: HEPARIN SODIUM - SQ 10,000 UNITS/ML VIAL SQ SCH ×2 (09:59→16:00)
[2017-10-09] MEDS: SODIUM CHLOR 0.9% 1000 ML INJ 1,000 ML IV SCH ×2 (10:00→16:02)
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
[2017-10-09] MEDS: LACTATED RINGER'S 1000 ML INJ 1,000 ML IV SCH ×3 (10:05→21:22)
[2017-10-09] MEDS ORDERED: PHARMACY ORDERED LAB ONE (20:45)
--- NOTE | 2017-10-10 00:10 | PD.AMA ---
Against Medical Advice Note Discharge Disposition: Against Medical Advice Pt Condition on Discharge: Guarded AMA Statement Patient Alejandro Quintero has decided to leave the hospital against medical advice. This patient has the capacity to refuse care and understands the risks of leaving, including permanent disability and/or , and has had an opportunity to ask questions about his condition. The patient has been informed that he may return for care at any time, and follow up has been arranged/ advised. Rajani Quintana Oct 10, 2017 00:10
== END 2017-10-10 00:06 | disposition left against medical advice (07) | DRG 871 ==
LOC: NEPC 04:39 → NEDA 06:49 → HIMW 10:35 → N07A 10-09 11:44
PROVIDERS: ADMIT Hospitalist; ATTEND Hospitalist
DX: A41.9 Sepsis, unspecified organism (principal); I33.0 Acute and subacute infective endocarditis; I76 Septic arterial embolism; E87.2 Acidosis; N17.9 Acute kidney failure, unspecified; B19.20 Unspecified viral hepatitis C without hepatic coma; F11.10 Opioid abuse, uncomplicated; F17.200 Nicotine dependence, unspecified, uncomplicated; Z86.14 Personal history of Methicillin resistant Staphylococcus aureus infection; Z89.022 Acquired absence of left finger(s); Z91.14 Patient's other noncompliance with medication regimen
CPT/HCPCS: 36600; 70250; 71045; 71260; 72157; 73120; 74177; 76937; 80053; 81001; 82805; 83605; 83690; 84484; 85025; 85610; 85730; 87040; 87205; 87641; 87804; 94667; 96365; A9579; J0692; J0696; J1644; J3370; J7030; J7040; J7050; J7120; Q9967

== ENCOUNTER 2017-10-19 04:02 | Observation (INO) | payer SELFPAY ==
[~2017-10-19] VITALS: Ht 182.9 cm; Wt 65.0 kg
[2017-10-19] VITALS (8 sets, daily range): BP systolic 94–121; BP diastolic 51–81; PULSE 53–89; RESP 16–19; TEMP 98–98.3; O2SAT 96–100
[2017-10-19 04:50] LABS: AUTOMATED NEUTROPHIL # 2.8 TH/MM3 (1.8-7.7); EOSINOPHIL % 0.5 % (0.0-4.0); HEMOGLOBIN 12.2 GM/DL (13.0-17.0); LYMPH % 32.1 % (9.0-44.0); LYMPHOCYTE # 1.6 TH/MM3 (1.0-4.8); MEAN CELL VOLUME 84.3 FL (80.0-100.0); MEAN CORPUSCULAR HEMOGLOBIN 28.6 PG (27.0-34.0); MEAN PLATELET VOLUME 8.7 FL (7.0-11.0); MONO % 8.8 % (0.0-8.0); MONOCYTE # 0.4 TH/MM3 (0-0.9); NEUT % 57.6 % (16.0-70.0); PLATELET COUNT 280 TH/MM3 (150-450); RED BLOOD COUNT 4.26 MIL/MM3 (4.50-5.90); RED CELL DISTRIBUTION WIDTH 14.5 % (11.6-17.2); WHITE BLOOD COUNT 4.9 TH/MM3 (4.0-11.0)
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
--- NOTE | 2017-10-19 04:59 | RADRPT ---
EXAM DATE/TIME: 10/19/2017 04:49 [place] COMPARISON: CHEST SINGLE AP, October 08, 2017, 5:11. INDICATIONS : Short of breath. MEDICAL HISTORY : Cardiovascular disease. Hepatitis C. IVDA SURGICAL HISTORY : None. ENCOUNTER: Initial ACUITY: 1 day PAIN SCORE: Non-responsive. LOCATION: Bilateral chest FINDINGS: A single view of the chest demonstrates the lungs to be symmetrically aerated without evidence of mas s, infiltrate or effusion. The cardiomediastinal contours are unremarkable. Osseous structures are intact. Calcified granuloma right lung base. CONCLUSION: No acute disease. Basim Kimball MD on October 19, 2017 at 4:56 Board Certified Radiologist. This report was verified electronically.
[2017-10-19 05:01] LABS: PROTHROMBIN TIME - PATIENT 10.6 SEC (9.8-11.6)
[2017-10-19 05:07] LABS: ALBUMIN 3.7 GM/DL (3.4-5.0); ALT (GPT) 25 U/L (12-78); AST (GOT) 20 U/L (15-37); BICARBONATE 30.4 MEQ/L (21.0-32.0); BLOOD UREA NITROGEN 13 MG/DL (7-18); C-REACTIVE PROTEIN 0.32 MG/DL (0.00-0.30); CALCIUM 8.8 MG/DL (8.5-10.1); CHLORIDE 106 MEQ/L (98-107); CREATININE 0.73 MG/DL (0.60-1.30); GLOMERULAR FILTRATION RATE 122 ML/MIN (>89); GLUCOSE,RANDOM 90 MG/DL (74-106); SODIUM (NA) 141 MEQ/L (136-145)
[2017-10-19 05:11] LABS: ALKALINE PHOSPHATASE 87 U/L (45-117); TOTAL BILIRUBIN ADULT 0.4 MG/DL (0.2-1.0); TOTAL PROTEIN 8.1 GM/DL (6.4-8.2); TROPONIN I LESS THAN 0.02 NG/ML (0.02-0.05)
[2017-10-19] MEDS ORDERED: CEFEPIME INJ 2,000 MG in SODIUM CHLORIDE 0.9% INJ 100 ML IV ONE (06:15)
[2017-10-19] MEDS ORDERED: VANCOMYCIN INJ 1,000 MG in SODIUM CHLOR 0.9% 250 ML INJ 250 ML IV ONE (06:15)
[2017-10-19] MEDS ORDERED: SODIUM CHLOR 0.9% 1000 ML INJ 1,000 ML IV ONE (06:15)
[2017-10-19] MEDS ORDERED: NALOXONE HCL 0.4 MG/ML AMP IV PUSH PRN (06:30)
[2017-10-19] MEDS ORDERED: Vancomycin Consult Pharmacy 1 EA OTHER SCH (06:30)
[2017-10-19] MEDS ORDERED: SODIUM CHLORIDE 0.9% FLUSH 10 ML FLUSH IV FLUSH PRN (06:30)
[2017-10-19] MEDS: SODIUM CHLORIDE 0.9% FLUSH 10 ML FLUSH IV FLUSH SCH (09:00)
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
[2017-10-19] MEDS ORDERED: NALOXONE HCL 0.4 MG/ML AMP IV PUSH ONE (09:15)
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
[2017-10-19] MEDS ORDERED: IOHEXOL 350 MG/ML 10 ML VIAL (for RAD DIAG) IVCONTRAST ONE (11:20)
--- NOTE | 2017-10-19 11:38 | RADRPT ---
EXAM DATE/TIME: 10/19/2017 11:15 [facility] COMPARISON: CT THORAX W CONTRAST, October 08, 2017, 8:22. INDICATIONS : Chest pain, possible septic emboli. IV CONTRAST: 75 cc Omnipaque 350 (iohexol) IV RADIATION DOSE: 4.71 CTDIvol (mGy) MEDICAL HISTORY : Hepatitis C. Endocarditis SURGICAL HISTORY : None. ENCOUNTER: Initial ACUITY: 1 day PAIN SCALE: 4/10 LOCATION: chest TECHNIQUE: Volumetric scanning of the chest was performed. Using automated exposure control and adjustment of t he mA and/or kV according to patient size, radiation dose was kept as low as reasonably achievable to obtain optimal diagnostic quality images. DICOM format image data is available electronically for review and comparison. Follow-up recommendations for detected pulmonary nodules are based at a minimum on nodule size and pa tient risk factors according to Fleischner Society Guidelines. FINDINGS: LUNGS: As seen previously, there are biapical emphysematous changes. Bibasilar areas of airspace consolidati on could represent compressive atelectasis or early infiltrate. Stable granulomatous type calcificati on just above the right hemidiaphragm in the right middle lobe. Minimal pleural-based atelectatic chas nges laterally in the right upper lung. PLEURA: There is no pleural thickening or pleural effusion. MEDIASTINUM: The heart and great vessels demonstrate no acute abnormality. There is no mediastinal or hilar lymph adenopathy. Granulomatous calcifications in the subcarinal lymph nodes AXILLAE: Within normal limits. No lymphadenopathy. SKELETAL: Within normal limits for patient age. MISCELLANEOUS: The visualized upper abdominal organs demonstrate no acute abnormality. CONCLUSION: 1. Stable bibasilar airspace consolidation may represent compressive atelectatic changes although ear ly infiltrate cannot be excluded. 2. Stable granulomatous disease. 3. Stable biapical emphysematous changes. Minimal pleural-based atelectasis laterally in the right up per lung. Ciro Marques MD on October 19, 2017 at 11:31 Board Certified Radiologist. This report was verified electronically.
[2017-10-19] MEDS ORDERED: CEFEPIME INJ 2,000 MG in SODIUM CHLORIDE 0.9% INJ 100 ML IV SCH (14:00)
[2017-10-19] MEDS ORDERED: VANCOMYCIN INJ 1,250 MG in SODIUM CHLOR 0.9% 250 ML INJ 250 ML IV SCH (18:00)
[2017-10-20 04:48] VITALS: BP 117/67; PULSE 55; RESP 18; TEMP 98; O2SAT 100
[2017-10-20 08:53] VITALS: BP_SYST 88; BP_SYST 90; BP_DIAS 54; BP_DIAS 55; PULSE 51; RESP 18; TEMP 97.8; O2SAT 99
--- NOTE | 2017-10-20 09:51 | EKG ---
Date Performed: 10/19/2017 Time Performed: 04:09:28 PTAGE: 37 years EKG: Sinus rhythm WITH SINUS ARRHYTHMIA WITH SHORT NC INTERVAL MODERATE INTRAVENTRICULAR CONDUCTION DELAY Compared to previous tracing QRS duration is longer BORDERLINE ECG PREVIOUS TRACING : 04/18/2016 02.08 DOCTOR: Luke Vargas Interpretating Date/Time 10/20/2017 09:51:49
--- NOTE | 2017-10-20 11:23 | HHI.PR ---
Objective Vital Signs Date Time Temp Pulse Resp B/P (MAP) Pulse Ox O2 Delivery O2 Flow Rate FiO2 10/20/17 08:53 97.8 51 18 90/55 (67) 99 10/20/17 04:48 98.0 55 18 117/67 (84) 100 10/19/17 23:36 98.1 53 19 121/72 (88) 100 10/19/17 19:53 98.0 55 18 99/57 (71) 98 10/19/17 15:18 10/19/17 14:48 98.3 72 18 94/51 (65) 99 10/19/17 13:03 56 18 108/70 (83) 99 Room Air I/O 10/19/17 10/19/17 10/19/17 10/20/17 10/20/17 10/20/17 07:00 15:00 23:00 07:00 15:00 23:00 Intake Total 1350 ml 750 ml Output Total 500 ml Balance 850 ml 750 ml Intake Oral 750 ml IV Total 1350 ml Output Urine Total 500 ml # Voids 1 Result Diagram: 10/19/17 04310/19/17 043 Objective Remarks GENERAL: Patient lying in bed. Appears comfortable. SKIN: Warm and dry. HEAD: Normocephalic. EYES: No scleral icterus. No injection or drainage. NECK: Supple, trachea midline. No JVD. CARDIOVASCULAR: Regular rate and rhythm without murmurs, gallops, or rubs. RESPIRATORY: Breath sounds equal bilaterally. No accessory muscle use. GASTROINTESTINAL: Abdomen soft, non-tender, nondistended. MUSCULOSKELETAL: No cyanosis, or edema. Left second digit with recent disarticulation. Stitches intact. Overlying scab, however no open wound. However is without erythema, no signs of infection. BACK: Nontender without obvious deformity. No CVA tenderness. A/P Assessment and Plan //Toxic encephalopathy Known IV drug use Suspect secondary to polysubstance abuse Drug screen positive for opiates and cocaine Avoid all sedating medications = Improved today. //Chest pain, atypical Initial troponin 0.02. Continue to trend cardiac enzymes. CXR shows no acute cardiopulmonary process, images reviewed by me CT chest ordered by ID, no acute changes from previous. continuous cardiac monitoring //History of MRSA mitral valve endocarditis, s/p treatment April 2016 //Hx of MRSA bacteremia and positive blood culture with Bacillus //Recent admission for sepsis //IV drug use, last used 2 days ago Consult ID, appreciate recommendations No evidence of sepsis at this time. Patient is afebrile. White count is 4.9. Lactic acid 0.8 ESR 37, CRP 0.32 Echo ordered repeat blood cultures pending, follow up on results = No need for echocardiogram. Appreciate ID assistance. 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 -Stitches still in place with slow wound healing. No signs of infection = Due to slow wound healing, hand surgery consulted for reevaluation. //Hep C LFTs within normal limits Standard precautions //DVT prophylaxis Bilateral SCDs Discharge Planning To detention with law enforcement when cleared by infectious disease and hand surgery. Sai Urbano MD Oct 20, 2017 11:23
[2017-10-20 13:51] VITALS: BP 103/69; PULSE 66; RESP 18; TEMP 98; O2SAT 98
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
[2017-10-20 16:30] VITALS: BP 114/70; PULSE 71; RESP 18; TEMP 98.6; O2SAT 99
[2017-10-20] MEDS ORDERED: PHARMACY ORDERED LAB ONE (17:45)
[2017-10-20 19:16] LABS: AUTOMATED NEUTROPHIL # 3.2 TH/MM3 (1.8-7.7); BASOPHIL # 0.1 TH/MM3 (0-0.2); BASOPHIL % 0.9 % (0.0-2.0); EOSINOPHIL % 0.4 % (0.0-4.0); HEMATOCRIT 41.3 % (39.0-51.0); HEMOGLOBIN 13.5 GM/DL (13.0-17.0); LYMPH % 34.7 % (9.0-44.0); MEAN CELL VOLUME 84.2 FL (80.0-100.0); MEAN CORPUSCULAR HEMOGLOBIN 27.6 PG (27.0-34.0); MEAN CORPUSCULAR HGB CONC 32.8 % (32.0-36.0); MEAN PLATELET VOLUME 9.4 FL (7.0-11.0); MONO % 8.1 % (0.0-8.0); MONOCYTE # 0.5 TH/MM3 (0-0.9); NEUT % 55.9 % (16.0-70.0); PLATELET COUNT 254 TH/MM3 (150-450); RED CELL DISTRIBUTION WIDTH 14.9 % (11.6-17.2); WHITE BLOOD COUNT 5.8 TH/MM3 (4.0-11.0)
[2017-10-20 19:19] LABS: BICARBONATE 24.7 MEQ/L (21.0-32.0); CALCIUM 8.9 MG/DL (8.5-10.1); CREATININE 0.61 MG/DL (0.60-1.30)
--- NOTE | 2017-10-20 20:13 | MB ---
cc: JHONNY MAHMOOD MD DATE OF CONSULTATION 10/20/2017 REASON FOR CONSULTATION Left index finger infection follow up. HISTORY The patient is a 37-year-old male under the custody of police department brought in today for evaluation of chest pain. The patient was admitted to the hospital previously for infection of the left index finger. 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 The patient underwent multiple debridements and disarticulation through the distal interphalangeal joint of left index finger about 3 weeks ago. Hand surgery was consulted for followup of the left index finger surgery. The patient complains of mild pain. Denies any drainage from the region. Denies any constant throbbing, pain over the left index finger. He is here today for chest pain. PAST MEDICAL AND SURGICAL HISTORY Noted significant for: 1. Hepatitis C. 2. MRSA with endocarditis. PHYSICAL EXAMINATION GENERAL: The patient is awake and alert, responds to oral commands. EXTREMITIES: Examination of left index finger reveals well healed amputation stump with sutures in place. No surrounding swelling or erythema noted. degrees of flexion of the PIP joint is limited. He has intact sensation over the amputation stump region. No drainage noted. Mild tenderness on deep palpation noted. No signs of infection noted. ASSESSMENT A 37-year-old male status post disarticulation distal interphalangeal joint left index finger 3 weeks. PLAN The surgical incision site was cleaned with alcohol wipes. Sutures were removed. Dry dressing applied. The surgical incision site and flap have healed well. No active surgical or hand surgical management needed at present time. Antibiotics based on ID recommendation. Jhonny Mahmood MD SE/ANDREE /5:27 PM /7:59 PM
[2017-10-20] MEDS: SODIUM CHLORIDE 0.9% FLUSH 10 ML FLUSH IV FLUSH SCH (21:15)
[2017-10-20 22:00] VITALS: BP 102/51; PULSE 53; RESP 18; TEMP 98.2; O2SAT 98
[2017-10-21 04:42] VITALS: BP 115/69; PULSE 71; RESP 18; TEMP 98.5; O2SAT 98
[2017-10-21 08:00] VITALS: PULSE 72
[2017-10-21 09:00] VITALS: BP 108/73; PULSE 65; RESP 18; TEMP 98.3; O2SAT 97
[2017-10-21 11:44] VITALS: BP 116/73; PULSE 71; RESP 21; TEMP 98; O2SAT 98
--- NOTE | 2017-10-21 16:11 | HHI.PR ---
Subjective Remarks Patient seen this morning around 9 AM. Says he is feeling well. Reports pain is controlled. Eyes any nausea or vomiting. Denies any chest pain or shortness of breath I discussed with infectious disease, who is reviewed microbiology, and is clear patient for discharge. No signs of current infection. Objective Vital Signs Date Time Temp Pulse Resp B/P (MAP) Pulse Ox O2 Delivery O2 Flow Rate FiO2 10/21/17 11:44 98.0 71 21 116/73 (87) 98 10/21/17 09:00 98.3 65 18 108/73 (85) 97 10/21/17 08:00 72 10/21/17 04:42 98.5 71 18 115/69 (84) 98 10/20/17 22:00 98.2 53 18 102/51 (68) 98 10/20/17 16:30 98.6 71 18 114/70 (85) 99 Result Diagram: 10/20/17180410/20/17 180 Objective Remarks GENERAL: Patient lying in bed. Appears comfortable. No change on exam. SKIN: Warm and dry. HEAD: Normocephalic. EYES: No scleral icterus. No injection or drainage. NECK: Supple, trachea midline. No JVD. CARDIOVASCULAR: Regular rate and rhythm without murmurs, gallops, or rubs. RESPIRATORY: Breath sounds equal bilaterally. No accessory muscle use. GASTROINTESTINAL: Abdomen soft, non-tender, nondistended. MUSCULOSKELETAL: No cyanosis, or edema. Left second digit dressed, with dressing clean dry and intact.. BACK: Nontender without obvious deformity. No CVA tenderness. A/P Assessment and Plan //Toxic encephalopathy Known IV drug use Suspect secondary to polysubstance abuse Drug screen positive for opiates and cocaine Avoid all sedating medications = Resolved. //Chest pain, atypical Initial troponin 0.02. Continue to trend cardiac enzymes. CXR shows no acute cardiopulmonary process, images reviewed by me CT chest ordered by ID, no acute changes from previous. continuous cardiac monitoring //History of MRSA mitral valve endocarditis, s/p treatment April 2016 //Hx of MRSA bacteremia and positive blood culture with Bacillus //Recent admission for sepsis //IV drug use, last used 2 days ago Consult ID, appreciate recommendations No evidence of sepsis at this time. Patient is afebrile. White count is 4.9. Lactic acid 0.8 ESR 37, CRP 0.32 Echo ordered repeat blood cultures pending, follow up on results = No need for echocardiogram. Appreciate ID assistance. = ID has cleared patient for discharge. Blood cultures are negative 48 hours. 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 -Stitches still in place with slow wound healing. No signs of infection = Due to slow wound healing, hand surgery consulted for reevaluation. = Patient was seen by hand surgery. Sutures removed. Follow up with primary care. Keep wound clean. //Hep C LFTs within normal limits Standard precautions //DVT prophylaxis Discharge Planning Patient cleared by infectious disease. Discharge to law-enforcement. Sai Urbano MD Oct 21, 2017 16:11
--- NOTE | 2017-10-21 16:18 | HHI.DS ---
Discharge Summary Admission Date Oct 19, 2017 at 06:22 Discharge Date: Oct 21, 2017 Admitting Diagnosis Chest pain r/o recurrent Endocarditis, h/o IVDU (1) Endocarditis ICD Code: I38 - Endocarditis, valve unspecified Status: Resolved Procedures Sutures removed by hand surgery Brief History - From Admission Written by Ann Moser, acting as scribe for Dr. Urbano on 10/19/17 at 08: 58. 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 He was arrested for a felony and was brought into the ED by law enforcement after complaining of chest pain. He is handcuffed to the bed. Patient is very lethargic and is a poor historian. He was given 0.2 mg of Narcan IV with improved alertness. He reports the chest pain is worse with deep inspiration. He complains of left shoulder pain. In September, patient was admitted with a septic arthritis of the left index finger and had 1 out of 2 blood cultures positive for MRSA. He had an echocardiogram done at that time which did not show any vegetation. He was readmitted in early October with sepsis and had 1 out of 2 blood cultures grow bacillus. There was concern for recurrent endocarditis but left AMA on 10/10/17 prior to his workup being completed. Patient states he left because he was concerned for the health of his who was also admitted at that time. CBC/BMP: 10/20/17 1805 10/20/17 1805 Significant Findings Laboratory Tests Test 10/19/17 04:30 10/19/17 05:30 10/19/17 09:14 10/20/17 18:05 Red Blood Count 4.26 MIL/MM3 (4.50-5.90) Hemoglobin 12.2 GM/DL (13.0-17.0) Hematocrit 36.0 % (39.0-51.0) Monocytes (%) (Auto) 8.8 % (0.0-8.0) 8.1 % (0.0-8.0) Erythrocyte Sedimentation Rate 37 mm/hr (0-15) Activated Partial Thromboplast Time 30.4 SEC (24.3-30.1) Total Creatine Kinase 36 U/L (39-308) Troponin I LESS THAN 0.02 NG/ML C-Reactive Protein 0.32 MG/DL (0.00-0.30) Lipase 69 U/L (73-393) Urine Opiates Screen POS (NEG) Urine Cocaine Screen POS (NEG) Chloride Level 108 MEQ/L (98-107) Imaging Last Impressions Chest X-Ray 10/19/17 0409 Signed Impressions: Service Date/Time: Thursday, October 19, 2017 04:49 - CONCLUSION: No acute disease. Basim Kimball MD Chest CT 10/19/17 0000 Signed Impressions: Service Date/Time: Thursday, October 19, 2017 11:15 - CONCLUSION: 1. Stable bibasilar airspace consolidation may represent compressive atelectatic changes although early infiltrate cannot be excluded. 2. Stable granulomatous disease. 3. Stable biapical emphysematous changes. Minimal pleural-based atelectasis laterally in the right upper lung. Ciro Marques MD Hospital Course Patient presented with somnolence on admission, which improved after small dose of Narcan. Doctrine positive for cocaine and opiates. Cephalopathy resolved on hospital day 1. Due to chest pain, infectious disease was consulted, blood cultures were ordered and negative [address] chest with no acute changes from previous hospitalization. Please see above. Hand surgery saw the patient , remove sutures from recent surgery 2 weeks ago. Patient will need to keep this left second digit clean. Patient was cleared by infectious disease, will be discharged to law-enforcement. For problem based summary from most recent progress note, please see below. //Toxic encephalopathy Known IV drug use Suspect secondary to polysubstance abuse Drug screen positive for opiates and cocaine Avoid all sedating medications = Resolved. //Chest pain, atypical Initial troponin 0.02. Continue to trend cardiac enzymes. CXR shows no acute cardiopulmonary process, images reviewed by me CT chest ordered by ID, no acute changes from previous. continuous cardiac monitoring //History of MRSA mitral valve endocarditis, s/p treatment April 2016 //Hx of MRSA bacteremia and positive blood culture with Bacillus //Recent admission for sepsis //IV drug use, last used 2 days ago Consult ID, appreciate recommendations No evidence of sepsis at this time. Patient is afebrile. White count is 4.9. Lactic acid 0.8 ESR 37, CRP 0.32 Echo ordered repeat blood cultures pending, follow up on results = No need for echocardiogram. Appreciate ID assistance. = ID has cleared patient for discharge. Blood cultures are negative 48 hours. 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 -Stitches still in place with slow wound healing. No signs of infection = Due to slow wound healing, hand surgery consulted for reevaluation. = Patient was seen by hand surgery. Sutures removed. Follow up with primary care. Keep wound clean. //Hep C LFTs within normal limits Standard precautions //DVT prophylaxis Pt Condition on Discharge: Good Discharge Disposition: Dis to [employer] Discharge Time: <= 30 minutes Discharge Instructions DIET: Follow Instructions for: As Tolerated, No Restrictions Activities you can perform: Regular-No Restrictions Other Activity Instructions: keep left index finger protected and clean Follow up Referrals: PCP Follow-up - 2-3 Days Discontinued Medications: Sulfamethoxazole-Trimethoprim (Bactrim DS) 800-160 Mg Tab 1 TAB PO BID for Infection, #20 TAB 0 Refills Sai Urbano MD Oct 21, 2017 16:18
== END 2017-10-21 14:26 ==
LOC: NEPC 04:02 → NEDA 06:22 → NEDH 10:29 → NEPGCP 13:40
PROVIDERS: ADMIT Internal Medicine; ATTEND Internal Medicine
DX: I38 Endocarditis, valve unspecified (principal); G92 Toxic encephalopathy; R94.31 Abnormal electrocardiogram [ECG] [EKG]; R06.02 Shortness of breath; B19.20 Unspecified viral hepatitis C without hepatic coma; F17.210 Nicotine dependence, cigarettes, uncomplicated; F11.10 Opioid abuse, uncomplicated; F14.10 Cocaine abuse, uncomplicated; Z91.14 Patient's other noncompliance with medication regimen; Z86.14 Personal history of Methicillin resistant Staphylococcus aureus infection; Z89.022 Acquired absence of left finger(s); Z48.02 Encounter for removal of sutures; Z86.79 Personal history of other diseases of the circulatory system
CPT/HCPCS: 71045; 71260; 80048; 80053; 80307; 82550; 83605; 83690; 83880; 84484; 85025; 85610; 85652; 85730; 86140; 87040; 93005; 96365; 96368; 99285; G0378; J0692; J2310; J3370; J7030; J7050; Q9967